=== PATIENT | male | born 1970 | race American Indian/Alaskan Native ===

== ENCOUNTER 2016-12-19 20:41 | Inpatient (IN) | payer MEDICAID, OTHER ==
--- NOTE | 2016-12-19 21:28 | ED PDOC ---
Arrival/HPI - General Chief Complaint: Shortness Of Breath Time Seen by Provider: 12/19/16 21:12 Historian: Patient - History of Present Illness Narrative History of Present Illness (Text): 12/19/16 21:22 Sherif Carlson is a 46 year old male, whose past medical history includes hypertension, who presents to the Emergency Room complaining of progressively worsening swelling to throat/neck since yesterday. Patient reports associated fever, chills, and pain to the area with swallowing and opening his mouth. Patient denies any cough, abdominal pain, nausea, vomiting, diarrhea, headache , dizziness, or any other complaints. Time/Duration: 24 hours (yesterday) Symptom Onset: Gradual Symptom Course: Worsening Activities at Onset: Rest, Light Context: Home Past Medical History - Provider Review Nursing Documentation Reviewed: Yes - Cardiac Hx Hypertension: Yes - Pulmonary Hx Respiratory Disorders: No - Neurological Hx Neurological Disorder: No - HEENT Hx HEENT Disorder: No - Renal Hx Renal Disorder: No - Endocrine/Metabolic Hx Endocrine Disorders: No - Hematological/Oncological Hx Blood Disorders: No - Integumentary Hx Dermatological Disorder: No - Musculoskeletal/Rheumatological Hx Musculoskeletal Disorders: No - Gastrointestinal Hx Gastrointestinal Disorders: No - Genitourinary/Gynecological Hx Genitourinary Disorders: No - Psychiatric Hx Depression: Yes Hx Substance Use: Yes (CANNABIS) Family/Social History - Physician Review Nursing Documentation Reviewed: Yes Family/Social History: No Known Family HX Smoking Status: Heavy Smoker > 10 Cigarettes Daily Hx Alcohol Use: Yes Frequency of alcohol use: Socially Hx Substance Use: Yes (CANNABIS) Allergies/Home Meds Allergies/Adverse Reactions: Allergies No Known Allergies Allergy (Verified 12/19/16 20:54) Home Medications: Home Meds Medication Instructions Recorded Confirmed No Known Home Med 12/19/16 12/19/16 Review of Systems - Physician Review All systems were reviewed & negative as marked: Yes - Review of Systems Constitutional: Fevers, Other (+chills) ENT: Sore Throat Respiratory: Normal. absent: SOB, Cough Cardiovascular: Normal. absent: Chest Pain Gastrointestinal: Normal. absent: Diarrhea, Nausea, Vomiting Neurological: Normal. absent: Headache, Dizziness Hemo/Lymphatic: Adenopathy (+neck swelling) Physical Exam Vital Signs Reviewed: Yes Vital Signs Temp Pulse Resp BP Pulse Ox 12/20/16 02:43 100.7 F H 82 20 157/112 H 06/15/17 01:37 80 18 152/95 H 100 12/19/16 23:41 88 159/91 H 12/19/16 22:53 99.4 F 81 18 171/112 H 100 12/19/16 22:40 108 H 16 145/76 98 12/19/16 22:08 79 219/128 H 12/19/16 21:45 18 97 12/19/16 20:55 99.0 F 79 22 219/128 H 100 Temperature: Afebrile Blood Pressure: Hypertensive Pulse: Regular Respiratory Rate: Normal Appearance: Positive for: Well-Appearing, Non-Toxic, Comfortable Pain Distress: None Mental Status: Positive for: Alert and Oriented X 3 - Systems Exam Head: Present: Atraumatic, Normocephalic Pupils: Present: PERRL Extroacular Muscles: Present: EOMI Conjunctiva: Present: Normal Ears: Present: Normal, NORMAL TM, Normal Canal. No: Erythema, TM Bulging, Fluid , TM Perf Mouth: Present: Moist Mucous Membranes Pharnyx: Present: ERYTHEMA (Erythema to posterior pharynx). No: EXUDATE, TONSILS ENLARGED, Peritonsilar Swelling, Uvular Deviation, Muffled/Hoarse Voice , Strider, Soft Palate/Uvular Edema Nose (External): Present: Atraumatic Nose (Internal): Present: Normal Inspection Neck: Present: Lymphadenopathy (Anterior cervical adenopathy with swelling to subcutaneous neck/submandibular area and severe tenderness to palpation). No: Meningeal Signs, MIDLINE TENDERNESS Respiratory/Chest: Present: Clear to Auscultation, Good Air Exchange. No: Respiratory Distress, Accessory Muscle Use Cardiovascular: Present: Regular Rate and Rhythm, Normal S1, S2. No: Murmurs Abdomen: Present: Normal Bowel Sounds. No: Tenderness, Distention, Peritoneal Signs Upper Extremity: Present: Normal Inspection. No: Cyanosis, Edema Lower Extremity: Present: Normal Inspection. No: Edema Neurological: Present: GCS=15, CN II-XII Intact, Speech Normal Skin: Present: Warm, Dry, Normal Color. No: Rashes Psychiatric: Present: Alert, Oriented x 3, Normal Insight, Normal Concentration Medical Decision Making ED Course and Treatment: 12/19/16 21:22 Impression: 46 year old male c/o throat/neck swelling with fever, chills, and pain with swallowing/opening mouth since yesterday. Plan: -- CT Neck Soft Tissue with contrast -- EKG -- CXR -- Labs, troponin, VBG, blood cultures -- Urinalysis, urine cultures -- IV fluids -- Catapres -- Benadryl -- Pepcid -- Solu-medrol -- Tylenol -- Reassess and disposition Progress Notes: 12/19/16 22:35 Reviewed EKG, NSR at [address] LAD. Non-specific ST/T wave changes. 12/19/16 22:39 Pt tachycardic with VBG lactate: 2.7 and WBC of 18.9. Code Sepsis called. 12/20/16 01:38 Reviewed radiology, CT Neck shows: Mandibular subcutaneous soft tissue swelling with multiple submandibular lymph nodes. Findings suggestive of acute infectious /inflammatory process/cellulitis. No abscess. 12/20/16 01:39 Case discussed with medical assisting instructor, who is aware and agrees with plan. 12/20/16 01:[address] Hoover, who is aware and agrees with plan. Accepts pt in to hospitalist service. Pt will be admitted to [facility] for cellulitis. - Lab Interpretations Microbiology Results: Microbiology Results 12/19/16 22:10 Blood Blood Culture - Final Streptococcus Pyogenes Grp A 12/19/16 22:10 Blood Gram Stain - Final 12/19/16 22:10 Urine Urine Culture - Final No Growth (<1,000 CFU/ML) 12/19/16 22:10 Blood S.aureus & Coag-Neg Staph PNA FISH - Final 12/19/16 22:10 Blood Blood Culture - Preliminary Gram Positive Cocci 12/19/16 22:10 Blood Gram Stain - Preliminary Lab Results: 12/19/16 22:10 12/19/16 22:10 Lab Results 12/19/16 22:10: Sodium 138, Chloride 100, Potassium 3.3 L, Carbon Dioxide 25, Anion Gap 16, BUN 14, Creatinine 1.0, Est GFR ( Amer) > 60, Est GFR (Non- Af Amer) > 60, Random Glucose 106, Calcium 10.0, Phosphorus 3.0, Magnesium 2.3 H , Total Bilirubin 0.6, AST 30, ALT 31, Alkaline Phosphatase 115, Troponin I < 0.01, Total Protein 8.8 H, Albumin 5.0 H, Globulin 3.8, Albumin/Globulin Ratio 1.3 12/19/16 22:10: pO2 26 L, VBG pH 7.32, VBG pCO2 52.0, VBG HCO3 26.8, VBG Total CO2 28.4 H, VBG O2 Sat (Calc) 49.8, VBG Base Excess -0.1 L, VBG Potassium 3.8, Sodium 138.0, Chloride 102.0, Glucose 111 H, Lactate 2.7 H, FiO2 21.0, Venous Blood Potassium 3.8 12/19/16 22:10: Urine Color Yellow, Urine Appearance Clear, Urine pH 6.5, Ur Specific [place] 1.020, Urine Protein Trace H, Urine Glucose (UA) Negative, Urine Ketones Negative, Urine Blood Negative, Urine Nitrate Negative, Urine Bilirubin Negative, Urine Urobilinogen 0.2, Ur Leukocyte Esterase Negative, Urine RBC 0 - 2, Urine WBC 0 - 2, Ur Epithelial Cells 1 - 3, Urine Bacteria Large 12/19/16 22:10: PT 10.1, INR 0.94, APTT 30.6 12/19/16 22:10: WBC 18.9 H, RBC 5.71, Hgb 18.0, Hct 50.2, MCV 87.9, MCH 31.5, MCHC 35.9, RDW 13.5, Plt Count 270, MPV 10.3, Neutrophils % (Manual) 84 H, Band Neutrophils % 3 H, Lymphocytes % (Manual) 8 L, Monocytes % (Manual) 4, Eosinophils % (Manual) 1, Platelet Evaluation Normal I have reviewed the lab results: Yes - RAD Interpretation Narrative RAD Interpretations (Text): CT Neck shows: Chronic appearing inward deformity in the medial left orbital wall. No significant fluid in the sinuses. Chronic appearing deformity of the nasal bones. Subcutaneous soft tissue swelling in the mandibular region supportive of acute infectious/inflammatory process. On coronal image 30 and axial image 50, there is a faint somewhat rounded area of low attenuation that could represent the early stages of abscess formation however there is no well-defined drainable collection at this time. Submandibular lymph nodes are noted. Multiple small lymph nodes are noted throughout the neck. The thyroid appears normal. No masses. The airway is patent. A normal epiglottis is identified. There are mild degenerative changes in the osseous structures. Heterogeneity of the left jugular vein consistent with mixing of blood and contrast. IMPRESSION: Mandibular subcutaneous soft tissue swelling with multiple submandibular lymph nodes. Findings suggestive of acute infectious/inflammatory process/cellulitis. No abscess. Radiology Orders: 12/19/16 21:27 CHEST PORTABLE [RAD] Stat 12/19/16 22:43 NECK SOFT TISSUE W/CONTRAST [CT] Stat Wood Block Artist: ED Physician, Radiologist - EKG Interpretation Interpreted by ED Physician: Yes Type: 12 lead EKG - Medication Orders Current Medication Orders: Acetaminophen (Tylenol 325mg Tab) 650 mg PO Q6H PRN PRN Reason: Fever >100.4 F Last Admin: 12/20/16 10:59 Dose: 650 mg Re-Assess: MAR Pain/Vitals Document 12/20/16 11:59 SD (Rec: 12/20/16 12:56 SD [id number]) Vitals Temperature (97.6 F-99.6 F) 99.0 F Temperature Source Oral Amlodipine Besylate (Norvasc) 10 mg PO DAILY [facility] Last Admin: 12/22/16 10:52 Dose: Not Given Non-Admin Reason: Patient Refused Enoxaparin Sodium (Lovenox) 40 mg SC DAILY [facility] PRN Reason: Protocol Last Admin: 12/22/16 10:52 Dose: Not Given Non-Admin Reason: Patient Refused Famotidine (Pepcid) 20 mg PO BID [facility] Last Admin: 12/22/16 18:41 Dose: Not Given Non-Admin Reason: NPO Hydralazine HCl (Apresoline) 10 mg IVP Q6H PRN PRN Reason: High Blood Pressure Last Admin: 12/22/16 14:51 Dose: 10 mg Hydrochlorothiazide (Hydrodiuril) 25 mg PO DAILY [facility] Last Admin: 12/22/16 10:52 Dose: Not Given Non-Admin Reason: Patient Refused Ampicillin Sodium/Sulbactam (Sodium 3 gm/ Sodium Chloride) 100 mls @ 200 mls/ hr IVPB Q6 [facility] PRN Reason: Protocol Last Admin: 12/22/16 18:30 Dose: Fluconazole 100 mg/ (Miscellaneous) 50 mls @ 100 mls/hr IVPB DAILY [facility] PRN Reason: Protocol Last Admin: 12/22/16 10:03 Dose: 100 mls/hr Vancomycin HCl (Vancomycin 1gm) 1 gm in 250 mls @ 167 mls/hr IVPB Q12H ERNESTO PRN Reason: Protocol Potassium Chloride (Potassium Chloride 20 Meq/100 Ml) 20 meq in 100 mls @ 50 mls/hr IVPB Q2H ERNESTO Stop: 12/22/16 20:14 Last Admin: 12/22/16 18:41 Dose: 50 mls/hr Dextrose/Sodium Chloride (Dextrose 5%/0.45% Ns 1000 Ml) 1,000 mls @ 75 mls/hr IV .[id number] [facility] Last Admin: 12/22/16 16:49 Dose: 75 mls/hr Ketorolac Tromethamine (Toradol) 30 mg IVP Q6 PRN PRN Reason: Pain, moderate (4-7) Last Admin: 12/21/16 23:19 Dose: 30 mg Re-Assess: [facility] Pain Assessment Document 12/22/16 00:19 MB (Rec: 12/22/16 02:47 MB [id number]) Pain Reassessment Is this a pain reassessment? Yes Sleep Is patient sleeping during reassessment? Yes Lisinopril (Zestril) 40 mg PO DAILY [facility] Discontinued Medications Acetaminophen (Tylenol 325mg Tab) 650 mg PO STAT STA Stop: 12/19/16 21:30 Last Admin: 12/19/16 21:55 Dose: 650 mg Re-Assess: [facility] Pain/Vitals Document 12/19/16 22:55 RD (Rec: 12/19/16 23:05 RD [id number]) Pain Reassessment Is This A Pain ReAssessment? No Sleep Is patient sleeping during reassessment? No Presence of Pain Presence of Pain No Amlodipine Besylate (Norvasc) 5 mg PO DAILY [facility] Last Admin: 12/21/16 10:11 Dose: 5 mg Bacitracin (Bacitracin) Confirm Administered Dose 50,000 unit .ROUTE .STK-MED ONE Stop: 12/22/16 19:50 Clonidine HCl (Catapres) 0.2 mg PO STAT STA Stop: 12/19/16 21:33 Last Admin: 12/19/16 22:08 Dose: 0.2 mg Clonidine HCl (Catapres) 0.2 mg PO STAT STA Stop: 12/19/16 23:24 Last Admin: 12/19/16 23:41 Dose: 0.2 mg Diphenhydramine HCl (Benadryl) 25 mg IVP ONCE ONE Stop: 12/19/16 21:30 Last Admin: 12/19/16 21:50 Dose: 25 mg Enalaprilat (Vasotec Iv) 1.25 mg IVP STAT STA Stop: 12/22/16 16:05 Last Admin: 12/22/16 16:41 Dose: 1.25 mg Famotidine (Pepcid) 20 mg IVP STAT STA Stop: 12/19/16 21:30 Last Admin: 12/19/16 23:04 Dose: 20 mg Fentanyl (Fentanyl) Confirm Administered Dose 100 mcg .ROUTE .STK-MED ONE Stop: 12/22/16 19:33 Glycopyrrolate (Robinul) Confirm Administered Dose 0.2 mg .ROUTE .STK-MED ONE Stop: 12/22/16 19:39 Home Med (*Refrigerator Open) Confirm Administered Dose 1 unit XX .STK-MED ONE Stop: 12/20/16 18:13 Hydrochlorothiazide (Microzide) 12.5 mg PO DAILY [facility] Last Admin: 12/20/16 09:42 Dose: 12.5 mg Hydrochlorothiazide (Microzide) 12.5 mg PO ONCE STA Stop: 12/20/16 18:41 Last Admin: 12/20/16 19:01 Dose: 12.5 mg Sodium Chloride (Sodium Chloride 0.9%) 1,000 mls @ 100 mls/hr IV .Q10H [facility] Last Admin: 12/22/16 05:34 Dose: 100 mls/hr Sodium Chloride 2,040 ml/ IV (SUPPLIES) 2,040 mls @ 4,082.34 mls/hr IV ONCE ONE PRN Reason: 60 ML/KG/HR Stop: 12/19/16 23:24 Last Admin: 12/19/16 23:26 Dose: 4,082.34 mls/hr Clindamycin Phosphate 600 mg/ (Sodium Chloride) 54 mls @ 108 mls/hr IVPB STAT STA PRN Reason: Protocol Stop: 12/19/16 23:53 Last Admin: 12/20/16 00:40 Dose: 108 mls/hr Vancomycin HCl (Vancomycin 1gm) 1 gm in 250 mls @ 167 mls/hr IVPB STAT STA PRN Reason: Protocol Stop: 12/20/16 00:53 Last Admin: 12/20/16 02:00 Dose: 167 mls/hr Piperacillin Sod/Tazobactam Sod (Zosyn 4.5 Gm In Ns 100ml) 4.5 gm in 100 mls @ 200 mls/hr IVPB STAT STA PRN Reason: Protocol Stop: 12/19/16 23:53 Last Admin: 12/20/16 01:09 Dose: 200 mls/hr Vancomycin HCl (Vancomycin 1gm) 1 gm in 250 mls @ 167 mls/hr IVPB Q12 ERNESTO Last Admin: 12/21/16 10:12 Dose: 167 mls/hr Vancomycin HCl (Vancomycin 1gm) 1 gm in 250 mls @ 167 mls/hr IVPB Q12H ERNESTO PRN Reason: Protocol Last Admin: 12/22/16 06:22 Dose: 167 mls/hr Iohexol (Omnipaque 350 100 Ml) Confirm Administered Dose 350 mg .ROUTE .STK-MED ONE Stop: 12/19/16 22:56 Iohexol (Omnipaque 350 100 Ml) Confirm Administered Dose 350 mg .ROUTE .STK-MED ONE Stop: 12/22/16 13:15 Ketorolac Tromethamine (Toradol) 30 mg IVP STAT STA Stop: 12/20/16 02:33 Last Admin: 12/20/16 02:43 Dose: 30 mg Lidocaine/Epinephrine (Lidocaine 1%/Epinephrine 1:[id number] 30 Ml) Confirm Administered Dose 30 ml .ROUTE .STK-MED ONE Stop: 12/22/16 19:50 Last Admin: 12/22/16 20:01 Dose: 5 ml Lisinopril (Zestril) 20 mg PO DAILY [facility] Last Admin: 12/20/16 09:42 Dose: 20 mg Lisinopril (Zestril) 30 mg PO DAILY [facility] Last Admin: 12/22/16 10:44 Dose: Not Given Non-Admin Reason: Patient Refused Methylprednisolone (Solu-Medrol) 125 mg IVP ONCE ONE Stop: 12/19/16 21:30 Last Admin: 12/19/16 21:50 Dose: 125 mg Methylprednisolone (Solu-Medrol) 20 mg IV DAILY [facility] Last Admin: 12/21/16 10:10 Dose: 20 mg Midazolam HCl (Versed Inj) Confirm Administered Dose 2 mg .ROUTE .STK-MED ONE Stop: 12/22/16 19:35 Potassium Chloride (K-Dur 20 Meq Er Tab) 40 meq PO STAT STA Stop: 12/20/16 06:41 Last Admin: 12/20/16 07:46 Dose: 40 meq Potassium Chloride (K-Dur 20 Meq Er Tab) 40 meq PO STAT STA Stop: 12/20/16 10:20 Last Admin: 12/20/16 10:41 Dose: 40 meq Potassium Chloride (K-Dur 20 Meq Er Tab) 80 meq PO ONCE ONE Stop: 12/21/16 08:46 Last Admin: 12/21/16 08:40 Dose: 80 meq Propofol (Diprivan) Confirm Administered Dose 200 mg .ROUTE .STK-MED ONE Stop: 12/22/16 19:32 Propofol (Diprivan) Confirm Administered Dose 200 mg .ROUTE .STK-MED ONE Stop: 12/22/16 20:01 Soap/Cleanser (Mastisol Adhesive) Confirm Administered Dose 1.332 ml TOP .STK- MED ONE Stop: 12/22/16 19:49 - Scribe Statement The provider has reviewed the documentation as recorded by the Mayela Craig Provider Attestation: All medical record entries made by the Mayela were at my direction and personally dictated by me. I have reviewed the chart and agree that the record accurately reflects my personal performance of the history, physical exam, medical decision making, and the department course for this patient. I have also personally directed, reviewed, and agree with the discharge instructions and disposition. Disposition/Present on Arrival - Present on Arrival Any Indicators Present on Arrival: No History of DVT/PE: No History of Uncontrolled Diabetes: No Urinary Catheter: No History of Decub. Ulcer: No History Surgical Site Infection Following: None - Disposition Have Diagnosis and Disposition been Completed?: Yes Diagnosis: Cellulitis of neck Disposition: HOSPITALIZED Disposition Time: 02:00 Patient Plan: Admission Patient Problems: Current Active Problems Problem Status Onset Cellulitis of neck Acute Condition: STABLE
[2016-12-19] MEDS ORDERED: DiphenhydrAMINE 50 mg/ml Inj IVP ONE (21:29)
[2016-12-19] MEDS: Sodium Chloride 0.9% 1,000 ML IV SCH (22:07)
[2016-12-19 22:29] LABS: VENOUS BLOOD GAS BASE EXCESS -0.1 mmol/L (0.0-2.0); VENOUS BLOOD PH 7.32 (7.32-7.43)
[2016-12-19 22:42] LABS: ALB/GLOB RATIO 1.3 (1.1-1.8); ALKALINE PHOSPHATASE 115 U/L (38-133); ALT/SGPT 31 U/L (7-56); AST/SGOT 30 U/L (15-59); BILIRUBIN,TOTAL 0.6 mg/dL (0.2-1.3); BLOOD UREA NITROGEN 14 mg/dL (7-21); CARBON DIOXIDE 25 mmol/L (21-33); CHLORIDE 100 mmol/L (98-107); GFR AFRICAN-AMERICAN > 60; GLUCOSE,RANDOM 106 mg/dL (70-110); MAGNESIUM 2.3 mg/dL (1.7-2.2); POTASSIUM 3.3 mmol/L (3.6-5.0); SODIUM 138 mmol/L (132-148); TOTAL PROTEIN 8.8 g/dL (5.8-8.3)
[2016-12-19 22:45] LABS: HEMATOCRIT 50.2 % (42.0-52.0); MEAN CELL VOLUME 87.9 fL (80.0-105.0); MEAN CORPUSCULAR HEMOGLOBIN 31.5 pg (25.0-35.0); MEAN CORPUSCULAR HGB CONC 35.9 g/dl (31.0-37.0); MEAN PLATELET VOLUME 10.3 fl (7.0-11.0); PLATELET COUNT 270 10^3/uL (120.0-450.0); RED CELL DISTRIBUTION WIDTH 13.5 % (11.5-14.5); WHITE BLOOD COUNT 18.9 10^3/ul (4.5-11.0)
[2016-12-19 22:49] LABS: PH,URINE 6.5 (4.7-8.0); URINE BILIRUBIN NEGATIVE (NEGATIVE); URINE BLOOD NEGATIVE (NEGATIVE); URINE GLUCOSE (UA) NEGATIVE (NEGATIVE); URINE KETONE NEGATIVE (NEGATIVE); URINE LEUKOCYTE ESTERASE NEGATIVE Leu/uL (NEGATIVE); URINE PROTEIN TRACE mg/dL (<30 mg/dL); URINE UROBILINOGEN 0.2 E.U./dL (<1 E.U./dL)
[2016-12-19 22:51] LABS: ADD MANUAL DIFF? YES
[2016-12-19 22:53] LABS: URINE APPEARANCE CLEAR (CLEAR); URINE COLOR YELLOW (YELLOW)
[2016-12-19 22:55] LABS: TROPONIN I < 0.01 ng/mL
[2016-12-19] MEDS ORDERED: Iohexol 350 MG/100 ML VIAL ONE (22:55)
[2016-12-19 22:56] LABS: INR 0.94 (0.93-1.08); PARTIAL THROMBOPLASTIN TIME 30.6 Seconds (23.7-30.8)
[2016-12-19] MEDS ORDERED: Vancomycin 1gm in NS 250ml 1 GM/250 ML BAG IVPB STA (23:24)
[2016-12-19] MEDS ORDERED: Piperacill/Tazo 4.5gm in NS 4.5 GM/100 ML BAG IVPB STA (23:24)
[2016-12-19 23:25] LABS: URINE BACTERIA LARGE (NEG); URINE RBC 0 - 2 /hpf (0-2); URINE WBC 0 - 2 /hpf (0-6)
[2016-12-20 00:05] LABS: BAND 3 % (0-2); EOSINOPHIL 1 % (0.0-3.0); NEUTROPHIL 84 % (50.0-70.0); PLATELET ESTIMATE NORMAL (NORMAL)
--- NOTE | 2016-12-20 01:13 | CT ---
EXAM: CT Neck With Intravenous Contrast CLINICAL HISTORY: 46 years old, male; Pain; Throat pain; Additional info: Swelling/pain TECHNIQUE: Axial computed tomography images of the neck with intravenous contrast. This CT exam was performed using one or more of the following dose reduction techniques: automated exposure control, adjustment of the mA and/or kV according to patient size, and/or use of iterative reconstruction technique. Coronal and sagittal reformatted images were created and reviewed. CONTRAST: 98 mL of OMNI 350 administered intravenously. EXAM DATE/TIME: 12/19/2016 10:43 PM COMPARISON: No relevant prior studies available. FINDINGS: Chronic appearing inward deformity in the medial left orbital wall. No significant fluid in the sinuses. Chronic appearing deformity of the nasal bones. Subcutaneous soft tissue swelling in the mandibular region supportive of acute infectious/inflammatory process. On coronal image 30 and axial image 50, there is a faint somewhat rounded area of low attenuation that could represent the early stages of abscess formation however there is no well-defined drainable collection at this time. Submandibular lymph nodes are noted. Multiple small lymph nodes are noted throughout the neck. The thyroid appears normal. No masses. The airway is patent. A normal epiglottis is identified. There are mild degenerative changes in the osseous structures. Heterogeneity of the left jugular vein consistent with mixing of blood and contrast. IMPRESSION: Mandibular subcutaneous soft tissue swelling with multiple submandibular lymph nodes. Findings suggestive of acute infectious/inflammatory process/cellulitis. No abscess.
--- NOTE | 2016-12-20 02:35 | CP.PCM.HP ---
<AinsleyAndrew carrizales - Last Filed: 12/20/16 02:50> History of Present Illness - History of Present Illness History of Present Illness: This patient is a 46yo M w/ a PMHx of HTN only taking clonidine occasionally who is coming to the hospital for a progressive swelling in his neck for the past 3 days. He states he had a sore throat, that then progressed into swelling on the right side of his jaw that then went down to his neck. He states he is having some problems swallowing, but has no trouble breathing. States he had some fevers and chills as well. Denies any HUERTAS, SOB, abdominal pain, N/V/D, dysuria/freq/urg, or lower extremity pain swelling. Pmhx: HTN; non compliant with meds due to insurance issues Allergies: none Fam Hx: Mom, Dad both with HTN and DM, both of pancreatic cancer Surgeries: denies Meds: clonidine, .1mg TID infrequently Social: denies EtOH, admits to marijuana use, denies other illict drugs, smokes 10 cigarettes daily for 15 years. Unprotected sex with women; wishes to be screened for ALL STI/HIV/RPR Present on Admission - Present on Admission Any Indicators Present on Admission: No History of DVT/PE: No History of Uncontrolled Diabetes: No Urinary Catheter: No Decubitus Ulcer Present: No Past Patient History - Past Social History Smoking Status: Heavy Smoker > 10 Cigarettes Daily - CARDIAC Hx Hypertension: Yes - PULMONARY Hx Respiratory Disorders: No - NEUROLOGICAL Hx Neurological Disorder: No - HEENT Hx HEENT Problems: No - RENAL Hx Chronic Kidney Disease: No - ENDOCRINE/METABOLIC Hx Endocrine Disorders: No - HEMATOLOGICAL/ONCOLOGICAL Hx Blood Disorders: No - INTEGUMENTARY Hx Dermatological Problems: No - MUSCULOSKELETAL/RHEUMATOLOGICAL Hx Musculoskeletal Disorders: No - GASTROINTESTINAL Hx Gastrointestinal Disorders: No - GENITOURINARY/GYNECOLOGICAL Hx Genitourinary Disorders: No - PSYCHIATRIC Hx Depression: Yes Hx Substance Use: Yes (CANNABIS) - SURGICAL HISTORY Hx Surgeries: No Meds Allergies/Adverse Reactions: Allergies Allergy/AdvReac Type Severity Reaction Status Date / Time No Known Allergies Allergy Verified 12/19/16 20:54 Physical Exam - Constitutional Appears: Non-toxic, No Acute Distress - Head Exam Head Exam: absent: ATRAUMATIC Additional comments: visibly swollen right side of the face/parotid gland/tender to the touch - Eye Exam Eye Exam: EOMI, Normal appearance - ENT Exam ENT Exam: Mucous Membranes Moist Additional comments: Beckie present on tongue and throat - Neck Exam Neck exam: Positive for: Lymphadenopathy Additional comments: swollen right side of neck, tender to the touch, right parotid gland extremely enlarged and tender - Respiratory Exam Respiratory Exam: Clear to Auscultation Bilateral, NORMAL BREATHING PATTERN. absent: Rales, Rhonchi, Wheezes - Cardiovascular Exam Cardiovascular Exam: REGULAR RHYTHM, +S1, +S2 - GI/Abdominal Exam GI & Abdominal Exam: Normal Bowel Sounds, Soft. absent: Tenderness - Rectal Exam Rectal Exam: Deferred - Extremities Exam Extremities exam: Positive for: full ROM, normal inspection. Negative for: calf tenderness, pedal edema, tenderness - Back Exam Back exam: NORMAL INSPECTION. absent: CVA tenderness (L), CVA tenderness (R) - Neurological Exam Neurological exam: Alert, CN II-XII Intact, Oriented x3, Reflexes Normal - Psychiatric Exam Psychiatric exam: Normal Affect - Skin Skin Exam: Warm Results - Vital Signs Recent Vital Signs: Last Vital Signs Temp 99.4 F 12/19/16 22:53 Pulse 80 12/20/16 01:37 Resp 18 12/20/16 01:37 BP 152/95 H 12/20/16 01:37 Pulse Ox 100 12/20/16 01:37 - Labs Result Diagrams: 12/19/16 22:10 12/19/16 22:10 Assessment & Plan - Assessment and Plan (Free Text) Assessment: 46yo M admitted for Sepsis 2/2 to Cellulitis of the Neck and Hypertensive Emergency Sepsis 2/2 to Cellulits in the neck -Given Vanc, Zosyn, and Clindamycin in the ED -Will give Vanc 1g Q12H -WBC, Tachycardia and sign of infection for sepsis criteria -patient is maintaining airway; CT scan showed no sign of abscess (was given with contrast) but cellulitis/infection Hypertensive Emergency -Lactate of 2.7 -do not lower MAP by more than 25% within the first 24 hours for stroke risk -will start Lisinopril and Hctz in the AM; patient is already at goal for 24 hours in the ED -Hydralazine PRN Q6H for rebound HTN Prophylaxis Pepcid Heart Healthy Diet Lovenox f/u health maintenance labs Case discussed with Dr. Sneha James PGY1 Night Float Decision To Admit - Pt Status Changed To: Hospital Disposition Of: Inpatient Admission - Admit Certification Admit to Inpatient:: After my assessment, the patient will require hospitalization for at least two midnights. This is because of the severity of symptoms shown, intensity of services needed, and/or the medical risk in this patient being treated as an outpatient. - . Bed Request Type: Med/Surg Admitting Physician: Marcy Hoover <Marcy Hoover - Last Filed: 12/22/16 04:05> Results - Vital Signs Recent Vital Signs: Last Vital Signs Temp 98.4 F 12/21/16 16:00 Pulse 61 12/21/16 16:00 Resp 20 12/21/16 16:00 BP 163/107 H 12/21/16 16:00 Pulse Ox 98 12/21/16 16:00 - Labs Result Diagrams: 12/21/16 06:30 12/21/16 06:30 Labs: Laboratory Results - last 24 hr 12/20/16 12/21/16 12/21/16 09:00 06:30 06:30 WBC 17.2 H RBC 4.56 Hgb 14.1 Hct 39.2 L MCV 86.0 MCH 30.9 MCHC 36.0 RDW 13.3 Plt Count 212 MPV 9.5 Gran % 83.9 H Lymph % (Auto) 6.2 L Mccormick % (Auto) 9.3 H Eos % (Auto) 0.5 L Baso % (Auto) 0.1 Gran # 14.41 H Lymph # 1.1 L Mccormick # 1.6 H Eos # 0.1 Baso # 0.02 Sodium 138 Potassium 3.0 L Chloride 105 Carbon Dioxide 24 Anion Gap 12 BUN 8 Creatinine 0.9 Est GFR ( Amer) > 60 Est GFR (Non-Af Amer) > 60 Random Glucose 94 Calcium 8.8 Total Bilirubin 0.6 AST 24 ALT 30 Alkaline Phosphatase 62 Total Protein 6.9 Albumin 3.7 Globulin 3.2 Albumin/Globulin Ratio 1.2 HIV 1&2 Ag/Ab, 4th Gen Nonreactive Attending/Attestation - Attestation I have personally seen and examined this patient.: Yes I have fully participated in the care of the patient.: Yes I have reviewed all pertinent clinical information: Yes Notes (Text): 12/22/16 04:04 Agree with history , physical examination , assessment and plan.
[2016-12-20 02:40] LABS: VENOUS BLOOD GAS BASE EXCESS -1.3 mmol/L (0.0-2.0); VENOUS BLOOD PH 7.42 (7.32-7.43)
[2016-12-20] MEDS ORDERED: Potassium Chloride 20 mEq ER Tab PO STA ×2 (06:40→10:19)
[2016-12-20 08:05] LABS: ADD MANUAL DIFF? NO
[2016-12-20 08:10] LABS: GRAN # 19.98 (1.4-6.5); GRAN % 93.8 % (50.0-68.0); LYMPH # 0.6 (1.2-3.4); LYMPH % 2.6 % (22.0-35.0); MEAN CELL VOLUME 86.7 fL (80.0-105.0); MEAN CORPUSCULAR HEMOGLOBIN 30.9 pg (25.0-35.0); MEAN CORPUSCULAR HGB CONC 35.6 g/dl (31.0-37.0); MEAN PLATELET VOLUME 9.8 fl (7.0-11.0); MONO # 0.8 (0.1-0.6); MONO % 3.6 % (1.0-6.0); PLATELET COUNT 237 10^3/uL (120.0-450.0); RED CELL DISTRIBUTION WIDTH 13.1 % (11.5-14.5); WHITE BLOOD COUNT 21.3 10^3/ul (4.5-11.0)
[2016-12-20 08:21] LABS: ALB/GLOB RATIO 1.3 (1.1-1.8); ALKALINE PHOSPHATASE 75 U/L (38-133); ALT/SGPT 28 U/L (7-56); AST/SGOT 20 U/L (15-59); BILIRUBIN,TOTAL 0.9 mg/dL (0.2-1.3); BLOOD UREA NITROGEN 9 mg/dL (7-21); CALCIUM 8.8 mg/dL (8.4-10.5); CARBON DIOXIDE 22 mmol/L (21-33); CHLORIDE 105 mmol/L (98-107); CHOLESTEROL 161 mg/dL (130-200); GFR AFRICAN-AMERICAN > 60; GLUCOSE,RANDOM 148 mg/dL (70-110); POTASSIUM 3.1 mmol/L (3.6-5.0); SODIUM 138 mmol/L (132-148); TOTAL PROTEIN 7.1 g/dL (5.8-8.3)
[2016-12-20 08:35] LABS: FREE T4 1.17 ng/dL (0.78-2.19)
--- NOTE | 2016-12-20 08:39 | RAD ---
HISTORY: Sepsis Patient COMPARISON: No prior. FINDINGS: LUNGS: The lungs are well inflated and clear. PLEURA: No significant pleural effusion identified, no pneumothorax apparent. CARDIOVASCULAR: Normal. OSSEOUS STRUCTURES: No significant abnormalities. VISUALIZED UPPER ABDOMEN: Normal. OTHER FINDINGS: None. IMPRESSION: No active pulmonary disease.
[2016-12-20 08:49] LABS: THYROID STIMULATING HORMONE 0.43 mIU/mL (0.46-4.68)
[2016-12-20] MEDS: Enoxaparin 40 mg Syringe SC SCH (09:42)
[2016-12-20] MEDS: MethylPREDNISolone 40 mg Vial IV SCH (09:42)
[2016-12-20] MEDS: Sodium Chloride 0.9% 1,000 ML IV SCH ×2 (09:43→21:07)
[2016-12-20] MEDS: Vancomycin 1gm in NS 250ml 1 GM/250 ML BAG IVPB SCH ×2 (09:43→22:37)
[2016-12-20] MEDS ORDERED: Vancomycin 1 g Inj IVPB SCH (10:00)
[2016-12-20] MEDS: Ampicillin/Sulbactam 3 GM in Sodium Chloride 0.9% 100 ML IVPB SCH ×2 (14:34→17:30)
--- NOTE | 2016-12-20 18:46 | CON ---
DATE: 12/20/2016 REASON FOR CONSULTATION: Neck swelling. HISTORY OF PRESENT ILLNESS: The patient is a 46-year-old male with past medical history of hypertens ion, takes clonidine and marijuana smoking, recently smoked as of 2 days ago. The patient came to [facility], said he had a sore throat and neck swelling for 3 days starting on the right side of his jaw then went down in the submental region. The patient said he thinks he had fevers at home, but de nies any headache, having shortness of breath, abdominal pain, nausea, vomiting, diarrhea, dysuria, o r lower extremity swelling, change in vision. ALLERGIES: No known drug allergies. SOCIAL HISTORY: Smokes marijuana. Denies other illicit drug use. Denies alcohol use. Notes that mary kong infrequently takes his hypertension medication. The patient said he smokes 10 cigarettes daily for [address] scan performed when admitted. The CT scan showed that there was only a mandibular subcutaneous so ft tissue swelling with multiple submandibular lymph nodes. Findings suggestive of acute infection o r inflammatory process/cellulitis but no abscess was found, read by Dr. Filomena Pederson on 12/20/2016 . The patient was seen and examined. VITAL SIGNS: Afebrile, blood pressure 159/102, pulse 79, respirations 18, sat 99% on room air. LABORATORY DATA: White count was noted to be at 21.3 increased from 18.9. Lactate is down from 2.7 to 1.4. The patient's BUN and creatinine are stable. PHYSICAL EXAMINATION: GENERAL: Alert and oriented x 3 in no acute distress. EYES: ____ no sclera icterus. MOUTH: Moist mucous membranes. Poor dentition. Symmetric palate elevation. No floor of mouth swel ling. Uvula is midline. Tongue is midline. NECK: Minimal tenderness to palpation in the submental area, induration in the submental region. No fluctuance. No lymphadenopathy appreciated on physical exam. The patient has full range of motion of the neck to the left and to the right without pain. No pain upon swallowing. No crepitus appreci ated of the neck. RESPIRATION: Aerating well, no stridor, nonlabored breathing. VOICE: Normal, strong. ASSESSMENT AND PLAN: This is a 46-year-old male admitted for sepsis secondary [facility] The patient examined and noted to have submental swelling and induration with no drainable fluid collection. The patient is currently on vancomycin as an inpatient; however, noted the patient has not been seen by infectious disease at this time. Recommend Unasyn until the patient was seen by infectious diseanu waite. Recommend monitoring white count, vital signs and p.o. intake. The patient is able to tolerate diet and liquids at this time. No ENT surgical intervention. The patient discussed with nursing, ronal sed with the primary team. Theodore Haile DO cc: [id number] TT: 12/20/2016 18:45:27 Confirmation # [id number] Dictation # [id number]
--- NOTE | 2016-12-20 23:12 | CARD ---
APPROVED REPORT EKG Measurement Heart [id number] <Conclusion> Normal sinus rhythm Left axis deviation Abnormal ECG
[2016-12-21] MEDS: Ampicillin/Sulbactam 3 GM in Sodium Chloride 0.9% 100 ML IVPB SCH ×5 (00:19→23:19)
[2016-12-21 07:12] LABS: ADD MANUAL DIFF? NO
[2016-12-21 07:18] LABS: BASO # 0.02 K/mm3 (0.0-2.0); BASO % 0.1 % (0.0-3.0); EOS # 0.1 (0.0-0.7); EOS % 0.5 % (1.5-5.0); GRAN # 14.41 (1.4-6.5); GRAN % 83.9 % (50.0-68.0); HEMATOCRIT 39.2 % (42.0-52.0); LYMPH # 1.1 (1.2-3.4); LYMPH % 6.2 % (22.0-35.0); MEAN CORPUSCULAR HEMOGLOBIN 30.9 pg (25.0-35.0); MEAN PLATELET VOLUME 9.5 fl (7.0-11.0); MONO # 1.6 (0.1-0.6); MONO % 9.3 % (1.0-6.0); PLATELET COUNT 212 10^3/uL (120.0-450.0); RED CELL DISTRIBUTION WIDTH 13.3 % (11.5-14.5); WHITE BLOOD COUNT 17.2 10^3/ul (4.5-11.0)
[2016-12-21 07:48] LABS: ALB/GLOB RATIO 1.2 (1.1-1.8); ALKALINE PHOSPHATASE 62 U/L (38-133); ALT/SGPT 30 U/L (7-56); AST/SGOT 24 U/L (15-59); BILIRUBIN,TOTAL 0.6 mg/dL (0.2-1.3); BLOOD UREA NITROGEN 8 mg/dL (7-21); CALCIUM 8.8 mg/dL (8.4-10.5); CARBON DIOXIDE 24 mmol/L (21-33); CHLORIDE 105 mmol/L (98-107); GFR AFRICAN-AMERICAN > 60; GLUCOSE,RANDOM 94 mg/dL (70-110); SODIUM 138 mmol/L (132-148); TOTAL PROTEIN 6.9 g/dL (5.8-8.3)
[2016-12-21] MEDS ORDERED: Potassium Chloride 10 mEq ER Tab PO ONE (08:22)
[2016-12-21] MEDS ORDERED: Potassium Chloride 20 mEq ER Tab PO ONE (08:45)
--- NOTE | 2016-12-21 08:48 | CP.PCM.PN ---
<Titi Pineda - Last Filed: 12/21/16 15:57> Subjective - Date & Time of Evaluation Date of Evaluation: 12/21/16 Time of Evaluation: 08:42 - Subjective Subjective: Patient seen at bedside. No acute events overnight. He continues to complain of pain and discomfort under his tongue as well as pain with swallowing. Patient is tolerating a regular diet without reports of dysphagia. He is afebrile and denies fever, chills, n/v/d, chest pain or SOB. Objective - Vital Signs/Intake and Output Vital Signs (last 24 hours): Temp Pulse Resp BP Pulse Ox 98.5 F 107 H 22 100/70 99 12/20/16 16:00 12/20/16 16:00 12/20/16 16:00 12/20/16 16:00 12/20/16 16:00 Intake and Output: 12/21/16 12/21/16 06:59 18:59 Intake Total 2069 Balance 207 - Medications Medications: Current Medications Acetaminophen (Tylenol 325mg Tab) 650 mg PO Q6H PRN PRN Reason: Fever >100.4 F Last Admin: 12/20/16 10:59 Dose: 650 mg Amlodipine Besylate (Norvasc) 5 mg PO DAILY [facility] Enoxaparin Sodium (Lovenox) 40 mg SC DAILY ERNEST[facility] PRN Reason: Protocol Last Admin: 12/20/16 09:42 Dose: 40 mg Famotidine (Pepcid) 20 mg PO BID [facility] Last Admin: 12/20/16 17:30 Dose: 20 mg Hydralazine HCl (Apresoline) 10 mg IVP Q6H PRN PRN Reason: High Blood Pressure Last Admin: 12/20/16 03:59 Dose: 10 mg Hydrochlorothiazide (Hydrodiuril) 25 mg PO DAILY [facility] Sodium Chloride (Sodium Chloride 0.9%) 1,000 mls @ 100 mls/hr IV .Q10H [facility] Last Admin: 12/20/16 21:07 Dose: 100 mls/hr Vancomycin HCl (Vancomycin 1gm) 1 gm in 250 mls @ 167 mls/hr IVPB Q12 [facility] Last Admin: 12/20/16 22:37 Dose: 167 mls/hr Ampicillin Sodium/Sulbactam (Sodium 3 gm/ Sodium Chloride) 100 mls @ 200 mls/ hr IVPB Q6 [facility]NE[facility] PRN Reason: Protocol Last Admin: 12/21/16 05:00 Dose: 200 mls/hr Ibuprofen (Motrin Tab) 600 mg PO Q6H PRN PRN Reason: Pain, Mild (1-3) Ketorolac Tromethamine (Toradol) 30 mg IVP Q6 PRN PRN Reason: Pain, moderate (4-7) Last Admin: 12/21/16 04:53 Dose: 30 mg Lisinopril (Zestril) 30 mg PO DAILY [facility] Methylprednisolone (Solu-Medrol) 20 mg IV DAILY [facility] Last Admin: 12/20/16 09:42 Dose: 20 mg Potassium Chloride (K-Dur 20 Meq Er Tab) 80 meq PO ONCE ONE Stop: 12/21/16 08:46 - Labs Labs: 12/21/16 06:30 12/21/16 06:30 PT 10.1 Seconds (9.9-11.8) 12/19/16 22:10 INR 0.94 (0.93-1.08) 12/19/16 22:10 APTT 30.6 Seconds (23.7-30.8) 12/19/16 22:10 - Constitutional Appears: Non-toxic, No Acute Distress - Head Exam Head Exam: ATRAUMATIC, NORMOCEPHALIC - Eye Exam Eye Exam: EOMI, PERRL - ENT Exam ENT Exam: Mucous Membranes Dry - Neck Exam Additional comments: infra-mandibular soft tissue swelling without surrounding erythema or skin lesion - Respiratory Exam Respiratory Exam: Clear to Ausculation Bilateral. absent: Rales, Rhonchi, Wheezes - Cardiovascular Exam Cardiovascular Exam: REGULAR RHYTHM, +S1, +S2 - GI/Abdominal Exam GI & Abdominal Exam: Soft, Normal Bowel Sounds. absent: Tenderness - Extremities Exam Extremities Exam: Full ROM. absent: Calf Tenderness, Pedal Edema - Neurological Exam Neurological Exam: Alert, Awake, Oriented x3 - Psychiatric Exam Psychiatric exam: Normal Affect, Normal Mood - Skin Skin Exam: Dry, Warm Assessment and Plan - Assessment and Plan (Free Text) Assessment: 46yo M with hx HTN presenting with infra-mandibular soft tissue infection. He is afebrile. Upper airway is patent. There is no dysphagia. cellulitis -continue with vancomycin and unasyn per ENT -ENT following - rec abx. no surgical intervention -patient is maintaining airway; CT scan showed no sign of abscess (was given with contrast) but cellulitis/infection -ID following gram positive cocci bacteremia - repeat cultures - ID following - continue abx as above hx HTN - continue home medications Prophylaxis Pepcid Heart Healthy Diet Lovenox f/u health maintenance labs Patient seen, evaluated and examined with attending. <Gautam Nino MD - Last Filed: 12/21/16 17:29> Objective - Vital Signs/Intake and Output Vital Signs (last 24 hours): Temp Pulse Resp BP Pulse Ox 98.4 F 61 20 163/107 H 98 12/21/16 16:00 12/21/16 16:00 12/21/16 16:00 12/21/16 16:00 12/21/16 16:00 Intake and Output: 12/21/16 12/21/16 06:59 18:59 Intake Total 2069 760 Balance 2069 760 - Medications Medications: Current Medications Acetaminophen (Tylenol 325mg Tab) 650 mg PO Q6H PRN PRN Reason: Fever >100.4 F Last Admin: 12/20/16 10:59 Dose: 650 mg Amlodipine Besylate (Norvasc) 5 mg PO DAILY [facility] Last Admin: 12/21/16 10:11 Dose: 5 mg Enoxaparin Sodium (Lovenox) 40 mg SC DAILY ERNESTO PRN Reason: Protocol Last Admin: 12/21/16 10:12 Dose: 40 mg Famotidine (Pepcid) 20 mg PO BID [facility] Last Admin: 12/21/16 10:12 Dose: 20 mg Hydralazine HCl (Apresoline) 10 mg IVP Q6H PRN PRN Reason: High Blood Pressure Last Admin: 12/20/16 03:59 Dose: 10 mg Hydrochlorothiazide (Hydrodiuril) 25 mg PO DAILY [facility] Last Admin: 12/21/16 10:12 Dose: 25 mg Sodium Chloride (Sodium Chloride 0.9%) 1,000 mls @ 100 mls/hr IV .Q10H [facility] Last Admin: 12/21/16 14:18 Dose: 100 mls/hr Ampicillin Sodium/Sulbactam (Sodium 3 gm/ Sodium Chloride) 100 mls @ 200 mls/ hr IVPB Q6 ERNESTO PRN Reason: Protocol Last Admin: 12/21/16 12:55 Dose: 200 mls/hr Ibuprofen (Motrin Tab) 600 mg PO Q6H PRN PRN Reason: Pain, Mild (1-3) Ketorolac Tromethamine (Toradol) 30 mg IVP Q6 PRN PRN Reason: Pain, moderate (4-7) Last Admin: 12/21/16 13:12 Dose: 30 mg Lisinopril (Zestril) 30 mg PO DAILY [facility] Last Admin: 12/21/16 10:11 Dose: 30 mg Methylprednisolone (Solu-Medrol) 20 mg IV DAILY [facility] Last Admin: 12/21/16 10:10 Dose: 20 mg - Labs Labs: 12/21/16 06:30 12/21/16 06:30 PT 10.1 Seconds (9.9-11.8) 12/19/16 22:10 INR 0.94 (0.93-1.08) 12/19/16 22:10 APTT 30.6 Seconds (23.7-30.8) 12/19/16 22:10 Attending/Attestation - Attestation I have personally seen and examined this patient.: Yes I have fully participated in the care of the patient.: Yes I have reviewed all pertinent clinical information, including history, physical exam and plan: Yes Notes (Text): 12/21/16 17:26 Patient was seen and examined with medical representative .Agreed with resident assessment and plan. 46 M with Submandibular abscess and streptococus Pyogene bacteremia, on IV unasyn, was evaluated by ENT, no plan for drainage as per ENT.We will continue IV antibiotics, will follow up cultures,patient is afebrile today, WBC is coming down, tolerating food.ID is following. Management plan was discussed in detail with patient Education was provided.
[2016-12-21] MEDS: MethylPREDNISolone 40 mg Vial IV SCH (10:10)
[2016-12-21] MEDS: Vancomycin 1gm in NS 250ml 1 GM/250 ML BAG IVPB SCH ×2 (10:12→20:17)
[2016-12-21] MEDS: Enoxaparin 40 mg Syringe SC SCH (10:12)
[2016-12-21] MEDS: Sodium Chloride 0.9% 1,000 ML IV SCH (14:18)
--- NOTE | 2016-12-21 18:42 | CP.PCM.CON ---
History of Present Illness - History of Present Illness History of Present Illness: 46 year old male with PMH of HTN came in to [facility] complaining of worsening swelling of his throat as well as difficulty of swallowing which started 3 days prior to admission. He denies animal contacts or insect bites and no travel outside of [place] in the past 3 months. He denies sore throat , no rhinorrhea, no chest pain, no SOB, no cough, no abdominal pain, no fever or chills, no diarrhea, no dysuria. In the ED, CT neck showed submandibular swelling. Infectious Diseases consult is requested to further evaluate and manage. Review of Systems - Review of Systems All systems: reviewed and no additional remarkable complaints except (as per HPI ) Past Patient History - Past Social History Smoking Status: Heavy Smoker > 10 Cigarettes Daily - CARDIAC Hx Hypertension: Yes - PULMONARY Hx Respiratory Disorders: No - NEUROLOGICAL Hx Neurological Disorder: No - HEENT Hx HEENT Problems: No - RENAL Hx Chronic Kidney Disease: No - ENDOCRINE/METABOLIC Hx Endocrine Disorders: No - HEMATOLOGICAL/ONCOLOGICAL Hx Blood Disorders: No - INTEGUMENTARY Hx Dermatological Problems: No - MUSCULOSKELETAL/RHEUMATOLOGICAL Hx Musculoskeletal Disorders: No - GASTROINTESTINAL Hx Gastrointestinal Disorders: No - GENITOURINARY/GYNECOLOGICAL Hx Genitourinary Disorders: No - PSYCHIATRIC Hx Depression: Yes Hx Substance Use: Yes (CANNABIS) - SURGICAL HISTORY Hx Surgeries: No Meds Allergies/Adverse Reactions: Allergies Allergy/AdvReac Type Severity Reaction Status Date / Time No Known Allergies Allergy Verified 12/19/16 20:54 - Medications Medications: Current Medications Acetaminophen (Tylenol 325mg Tab) 650 mg PO Q6H PRN PRN Reason: Fever >100.4 F Last Admin: 12/20/16 10:59 Dose: 650 mg Amlodipine Besylate (Norvasc) 5 mg PO DAILY [facility] Enoxaparin Sodium (Lovenox) 40 mg SC DAILY ER[facility]STO PRN Reason: Protocol Last Admin: 12/20/16 09:42 Dose: 40 mg Famotidine (Pepcid) 20 mg PO BID [facility] Last Admin: 12/20/16 17:30 Dose: 20 mg Hydralazine HCl (Apresoline) 10 mg IVP Q6H PRN PRN Reason: High Blood Pressure Last Admin: 12/20/16 03:59 Dose: 10 mg Hydrochlorothiazide (Hydrodiuril) 25 mg PO DAILY [facility] Sodium Chloride (Sodium Chloride 0.9%) 1,000 mls @ 100 mls/hr IV .Q10H [facility] Last Admin: 12/20/16 21:07 Dose: 100 mls/hr Vancomycin HCl (Vancomycin 1gm) 1 gm in 250 mls @ 167 mls/hr IVPB Q12 [facility] Last Admin: 12/20/16 22:37 Dose: 167 mls/hr Ampicillin Sodium/Sulbactam (Sodium 3 gm/ Sodium Chloride) 100 mls @ 200 mls/ hr IVPB Q6 [facility]STO PRN Reason: Protocol Last Admin: 12/21/16 05:00 Dose: 200 mls/hr Ibuprofen (Motrin Tab) 600 mg PO Q6H PRN PRN Reason: Pain, Mild (1-3) Ketorolac Tromethamine (Toradol) 30 mg IVP Q6 PRN PRN Reason: Pain, moderate (4-7) Last Admin: 12/21/16 04:53 Dose: 30 mg Lisinopril (Zestril) 30 mg PO DAILY [facility] Methylprednisolone (Solu-Medrol) 20 mg IV DAILY [facility] Last Admin: 12/20/16 09:42 Dose: 20 mg Physical Exam - Constitutional Appears: Non-toxic, No Acute Distress - Head Exam Head Exam: NORMAL INSPECTION - ENT Exam ENT Exam: Mucous Membranes Moist Additional comments: submandibular swelling noted; oral thrush noted - Neck Exam Neck exam: Negative for: Lymphadenopathy, Meningismus - Respiratory Exam Respiratory Exam: Decreased Breath Sounds - Cardiovascular Exam Cardiovascular Exam: +S1, +S2 - GI/Abdominal Exam GI & Abdominal Exam: Soft. absent: Tenderness Results - Vital Signs Recent Vital Signs: Last Vital Signs Temp 98.5 F 12/20/16 16:00 Pulse 107 H 12/20/16 16:00 Resp 22 12/20/16 16:00 BP 100/70 12/20/16 16:00 Pulse Ox 99 12/20/16 16:00 - Labs Result Diagrams: 12/21/16 06:30 12/21/16 06:30 Labs: Laboratory Results - last 24 hr 12/20/16 12/20/16 12/20/16 07:30 07:30 07:30 WBC 21.3 H RBC 4.73 Hgb 14.6 Hct 41.0 L MCV 86.7 MCH 30.9 MCHC 35.6 RDW 13.1 Plt Count 237 MPV 9.8 Gran % 93.8 H Lymph % (Auto) 2.6 L Carbon % (Auto) 3.6 Eos % (Auto) 0.0 L Baso % (Auto) 0.0 Gran # 19.98 H Lymph # 0.6 L Carbon # 0.8 H Eos # 0.0 Baso # 0.00 Sodium 138 Potassium 3.1 L Chloride 105 Carbon Dioxide 22 Anion Gap 14 BUN 9 Creatinine 0.9 Est GFR ( Amer) > 60 Est GFR (Non-Af Amer) > 60 Random Glucose 148 H Hemoglobin A1c Calcium 8.8 Total Bilirubin 0.9 AST 20 ALT 28 Alkaline Phosphatase 75 Total Protein 7.1 Albumin 4.0 Globulin 3.1 Albumin/Globulin Ratio 1.3 Triglycerides 70 Cholesterol 161 LDL Cholesterol Direct 92 HDL Cholesterol 66 H Free T4 TSH 3rd Generation RPR Hepatitis A IgM Ab Negative Hep Bs Antigen Negative Hep B Core IgM Ab Negative Hepatitis C Antibody Negative 12/20/16 12/20/16 12/20/16 07:30 07:30 09:00 WBC RBC Hgb Hct MCV MCH MCHC RDW Plt Count MPV Gran % Lymph % (Auto) Carbon % (Auto) Eos % (Auto) Baso % (Auto) Gran # Lymph # Carbon # Eos # Baso # Sodium Potassium Chloride Carbon Dioxide Anion Gap BUN Creatinine Est GFR ( Amer) Est GFR (Non-Af Amer) Random Glucose Hemoglobin A1c 5.3 Calcium Total Bilirubin AST ALT Alkaline Phosphatase Total Protein Albumin Globulin Albumin/Globulin Ratio Triglycerides Cholesterol LDL Cholesterol Direct HDL Cholesterol Free T4 1.17 TSH 3rd Generation 0.43 L RPR Nonreactive Hepatitis A IgM Ab Hep Bs Antigen Hep B Core IgM Ab Hepatitis C Antibody Assessment & Plan - Assessment and Plan (Free Text) Plan: Assessment Sepsis due to submandibular cellulitis Oral thrush probably candidiasis HTN Plan continue Vancomycin and Unasyn and add Fluconazole; will order CT chest will check HIV test and RPR will monitor clinically
--- NOTE | 2016-12-21 19:06 | CARD ---
APPROVED REPORT EXAM: Two-dimensional and M-mode echocardiogram with Doppler and color Doppler. INDICATION ENDOCARDITIS 2D DIMENSIONS Left Atrium (2D)4.7 (1.6-4.0cm)IVSd1.2 (0.7-1.1cm) LVDd4.5 (3.9-5.9cm)PWd1.2 (0.7-1.1cm) LVDs3.1 (2.5-4.0cm)FS (%) 30.0 % LVEF (%)57.5 (>50%) M-Mode DIMENSIONS Aortic Root3.30 (2.2-3.7cm)Aortic Cusp Exc.1.80 (1.5-2.0cm) Aortic Valve AoV Peak Zivlfgbd399.0cm/Ritika Peak GR.7mmHg Mitral Valve MV E Jydzvzkj50.7cm/sMV A Kkiwwfvm89.5cm/sE/A ratio0.8 TDI Lateral E' Peak V8.09cm/sMedial E' Peak V7.31cm/sE/Lateral E'8.0 E/Medial E'8.9 Pulmonary Valve PV Peak Lnfkftwf26.1cm/sPV Peak Grad.2mmHg Tricuspid Valve TR Peak Omuudlvn487bt/sRAP HBTZCHKD25hpCfDS Peak Gr.11mmHg [id number] LEFT VENTRICLE The left ventricle is normal size. There is borderline concentric left ventricular hypertrophy. The left ventricular function is normal. The left ventricular ejection fraction is within the normal range. There is normal LV segmental wall motion. Transmitral Doppler flow pattern is Grade I-abnormal relaxation pattern. RIGHT VENTRICLE The right ventricle is normal size. There is normal right ventricular wall thickness. The right ventricular systolic function is normal. ATRIA The left atrium is borderline dilated. The right atrium size is normal. AORTIC VALVE The aortic valve is mildly thickened. No aortic regurgitation is present. MITRAL VALVE The mitral valve is mildly thickened. GREAT VESSELS The aortic root is normal in size. <Conclusion> The left ventricle is normal size. There is borderline concentric left ventricular hypertrophy. The left ventricular function is normal. The left ventricular ejection fraction is within the normal range. There is normal LV segmental wall motion. Transmitral Doppler flow pattern is Grade I-abnormal relaxation pattern. No vegitation seen
[2016-12-22] MEDS: Ampicillin/Sulbactam 3 GM in Sodium Chloride 0.9% 100 ML IVPB SCH ×5 (05:21→23:22)
[2016-12-22] MEDS: Sodium Chloride 0.9% 1,000 ML IV SCH (05:34)
[2016-12-22] MEDS: Vancomycin 1gm in NS 250ml 1 GM/250 ML BAG IVPB SCH ×2 (06:22→22:01)
[2016-12-22 08:02] LABS: ADD MANUAL DIFF? NO
[2016-12-22 08:04] LABS: BASO # 0.02 K/mm3 (0.0-2.0); BASO % 0.1 % (0.0-3.0); EOS # 0.2 (0.0-0.7); EOS % 1.5 % (1.5-5.0); GRAN # 10.49 (1.4-6.5); GRAN % 76.2 % (50.0-68.0); LYMPH # 1.6 (1.2-3.4); LYMPH % 11.6 % (22.0-35.0); MEAN CELL VOLUME 85.7 fL (80.0-105.0); MEAN CORPUSCULAR HEMOGLOBIN 31.1 pg (25.0-35.0); MEAN CORPUSCULAR HGB CONC 36.3 g/dl (31.0-37.0); MEAN PLATELET VOLUME 9.6 fl (7.0-11.0); MONO # 1.5 (0.1-0.6); MONO % 10.6 % (1.0-6.0); PLATELET COUNT 234 10^3/uL (120.0-450.0); WHITE BLOOD COUNT 13.8 10^3/ul (4.5-11.0)
[2016-12-22 08:21] LABS: ALB/GLOB RATIO 1.2 (1.1-1.8); ALKALINE PHOSPHATASE 71 U/L (38-133); ALT/SGPT 37 U/L (7-56); AST/SGOT 36 U/L (15-59); BILIRUBIN,TOTAL 0.4 mg/dL (0.2-1.3); BLOOD UREA NITROGEN 8 mg/dL (7-21); CALCIUM 9.2 mg/dL (8.4-10.5); CARBON DIOXIDE 22 mmol/L (21-33); CHLORIDE 103 mmol/L (98-107); GFR AFRICAN-AMERICAN > 60; GLUCOSE,RANDOM 90 mg/dL (70-110); POTASSIUM 3.1 mmol/L (3.6-5.0); SODIUM 136 mmol/L (132-148); TOTAL PROTEIN 7.4 g/dL (5.8-8.3)
[2016-12-22] MEDS ORDERED: Sodium Chloride 0.45% 1,000 ML IV SCH (09:45)
[2016-12-22] MEDS: Fluconazole IV 200mg/100 ml NS 100 MG in Premixed IV 1 EA IVPB SCH (10:03)
[2016-12-22] MEDS: Enoxaparin 40 mg Syringe SC SCH (10:52)
--- NOTE | 2016-12-22 11:51 | CP.PCM.PN ---
<Titi Pineda - Last Filed: 12/22/16 11:48> Subjective - Date & Time of Evaluation Date of Evaluation: 12/22/16 Time of Evaluation: 11:48 - Subjective Subjective: Patient seen at bedside. He continues to experience neck and jaw pain. States he is having increased difficulty with swallowing solids. He denies chocking or aspirating. He is afebrile but with generalized malaise. Objective - Vital Signs/Intake and Output Vital Signs (last 24 hours): Temp Pulse Resp BP Pulse Ox 98.4 F 61 20 178/116 H 98 12/21/16 16:00 12/22/16 05:24 12/21/16 16:00 12/22/16 10:44 12/21/16 16:00 Intake and Output: 12/22/16 12/22/16 06:59 18:59 Intake Total 540 Balance 540 - Medications Medications: Current Medications Acetaminophen (Tylenol 325mg Tab) 650 mg PO Q6H PRN PRN Reason: Fever >100.4 F Last Admin: 12/20/16 10:59 Dose: 650 mg Amlodipine Besylate (Norvasc) 10 mg PO DAILY [facility] Last Admin: 12/22/16 10:52 Dose: Not Given Enoxaparin Sodium (Lovenox) 40 mg SC DAILY [facility] PRN Reason: Protocol Last Admin: 12/22/16 10:52 Dose: Not Given Famotidine (Pepcid) 20 mg PO BID [facility] Last Admin: 12/22/16 10:52 Dose: Not Given Hydralazine HCl (Apresoline) 10 mg IVP Q6H PRN PRN Reason: High Blood Pressure Last Admin: 12/22/16 05:24 Dose: 10 mg Hydrochlorothiazide (Hydrodiuril) 25 mg PO DAILY [facility] Last Admin: 12/22/16 10:52 Dose: Not Given Ampicillin Sodium/Sulbactam (Sodium 3 gm/ Sodium Chloride) 100 mls @ 200 mls/ hr IVPB Q6 [facility] PRN Reason: Protocol Last Admin: 12/22/16 05:21 Dose: 200 mls/hr Fluconazole 100 mg/ (Miscellaneous) 50 mls @ 100 mls/hr IVPB DAILY [facility] PRN Reason: Protocol Last Admin: 12/22/16 10:03 Dose: 100 mls/hr Vancomycin HCl (Vancomycin 1gm) 1 gm in 250 mls @ 167 mls/hr IVPB Q12H [facility] PRN Reason: Protocol Sodium Chloride (Sodium Chloride 0.45%) 1,000 mls @ 60 mls/hr IV .[id number] [facility] Ibuprofen (Motrin Tab) 600 mg PO Q6H PRN PRN Reason: Pain, Mild (1-3) Ketorolac Tromethamine (Toradol) 30 mg IVP Q6 PRN PRN Reason: Pain, moderate (4-7) Last Admin: 12/21/16 23:19 Dose: 30 mg Lisinopril (Zestril) 30 mg PO DAILY [facility] Last Admin: 12/22/16 10:44 Dose: Not Given - Labs Labs: 12/22/16 08:00 12/22/16 08:00 PT 10.1 Seconds (9.9-11.8) 12/19/16 22:10 INR 0.94 (0.93-1.08) 12/19/16 22:10 APTT 30.6 Seconds (23.7-30.8) 12/19/16 22:10 - Constitutional Appears: Non-toxic, No Acute Distress - Head Exam Head Exam: ATRAUMATIC, NORMOCEPHALIC - Eye Exam Eye Exam: EOMI, PERRL - ENT Exam ENT Exam: Mucous Membranes Dry Additional comments: submandibular swelling, tenderness and induration. poor dentition noted. cervical lymphadenopathy. - Neck Exam Neck Exam: Lymphadenopathy. absent: Full ROM - Respiratory Exam Respiratory Exam: Clear to Ausculation Bilateral. absent: Rales, Rhonchi, Wheezes, Respiratory Distress - Cardiovascular Exam Cardiovascular Exam: REGULAR RHYTHM, +S1, +S2 - GI/Abdominal Exam GI & Abdominal Exam: Soft, Normal Bowel Sounds - Extremities Exam Extremities Exam: absent: Calf Tenderness, Pedal Edema - Neurological Exam Neurological Exam: Alert, Awake, Oriented x3 - Psychiatric Exam Psychiatric exam: Normal Affect, Normal Mood - Skin Skin Exam: Dry, Normal Color Assessment and Plan - Assessment and Plan (Free Text) Assessment: 46yo M with hx HTN presenting with infra-mandibular soft tissue infection. He is afebrile. Upper airway is patent. cellulitis - case d/w ENT who recommend repeat CT neck with contrast to r/o abscess formation -continue with vancomycin and unasyn per ENT -ENT following - rec abx. no surgical intervention -patient is maintaining airway; CT scan showed no sign of abscess (was given with contrast) but cellulitis/infection -ID following gram positive cocci bacteremia - repeat cultures - ID following - continue abx as above hx HTN - continue home medications Prophylaxis Pepcid Heart Healthy Diet Lovenox f/u health maintenance labs Patient seen, evaluated and examined with attending. <Gautam Nino MD - Last Filed: 12/22/16 15:44> Objective - Vital Signs/Intake and Output Vital Signs (last 24 hours): Temp Pulse Resp BP Pulse Ox 98.4 F 61 20 170/112 H 98 12/21/16 16:00 12/22/16 05:24 12/21/16 16:00 12/22/16 14:51 12/21/16 16:00 Intake and Output: 12/22/16 12/22/16 06:59 18:59 Intake Total 540 Balance 540 - Medications Medications: Current Medications Acetaminophen (Tylenol 325mg Tab) 650 mg PO Q6H PRN PRN Reason: Fever >100.4 F Last Admin: 12/20/16 10:59 Dose: 650 mg Amlodipine Besylate (Norvasc) 10 mg PO DAILY [facility] Last Admin: 12/22/16 10:52 Dose: Not Given Enoxaparin Sodium (Lovenox) 40 mg SC DAILY [facility] PRN Reason: Protocol Last Admin: 12/22/16 10:52 Dose: Not Given Famotidine (Pepcid) 20 mg PO BID [facility] Last Admin: 12/22/16 10:52 Dose: Not Given Hydralazine HCl (Apresoline) 10 mg IVP Q6H PRN PRN Reason: High Blood Pressure Last Admin: 12/22/16 14:51 Dose: 10 mg Hydrochlorothiazide (Hydrodiuril) 25 mg PO DAILY [facility] Last Admin: 12/22/16 10:52 Dose: Not Given Ampicillin Sodium/Sulbactam (Sodium 3 gm/ Sodium Chloride) 100 mls @ 200 mls/ hr IVPB Q6 [facility] PRN Reason: Protocol Last Admin: 12/22/16 13:05 Dose: 200 mls/hr Fluconazole 100 mg/ (Miscellaneous) 50 mls @ 100 mls/hr IVPB DAILY [facility] PRN Reason: Protocol Last Admin: 12/22/16 10:03 Dose: 100 mls/hr Vancomycin HCl (Vancomycin 1gm) 1 gm in 250 mls @ 167 mls/hr IVPB Q12H [facility] PRN Reason: Protocol Sodium Chloride (Sodium Chloride 0.45%) 1,000 mls @ 60 mls/hr IV .[id number] [facility] Ibuprofen (Motrin Tab) 600 mg PO Q6H PRN PRN Reason: Pain, Mild (1-3) Ketorolac Tromethamine (Toradol) 30 mg IVP Q6 PRN PRN Reason: Pain, moderate (4-7) Last Admin: 12/21/16 23:19 Dose: 30 mg Lisinopril (Zestril) 30 mg PO DAILY [facility] Last Admin: 12/22/16 10:44 Dose: Not Given - Labs Labs: 12/22/16 08:00 12/22/16 08:00 PT 10.1 Seconds (9.9-11.8) 12/19/16 22:10 INR 0.94 (0.93-1.08) 12/19/16 22:10 APTT 30.6 Seconds (23.7-30.8) 12/19/16 22:10 Attending/Attestation - Attestation I have personally seen and examined this patient.: Yes I have fully participated in the care of the patient.: Yes I have reviewed all pertinent clinical information, including history, physical exam and plan: Yes Notes (Text): 12/22/16 15:41 Patient was seen and examined with medical insurance verifier .Agreed with resident assessment and plan. 46 M with Submandibular abscess and streptococus Pyogene bacteremia, on IV unasyn,Vancomycin and fluconazole as per ID.Repeat blood cultures are negative.Patient WBC count is coming down, but he is complaining of worsening dysphagia. , case was discussed with ENT by medical insurance verifier and r epeat CT soft tissue of neck has been ordered , will folow up result.For now will start on clear liquid and will continue IV fluid.Patient is niot in any respiratory distress at this time. Patient also has right lower lung nodule , will need repeat chest in one year. Management plan was discussed in detail with patient Education was provided.
[2016-12-22] MEDS ORDERED: Iohexol 350 MG/100 ML VIAL ONE (13:14)
--- NOTE | 2016-12-22 14:04 | CT ---
CT chest with IV contrast Indication: Rule out cavitary lesions. Technique: Contiguous axial images were obtained through the chest with intravenous contrast enhancement. Sagittal and coronal reconstructions were generated and reviewed. This CT exam was performed using 1 or more of the falling dose reduction techniques: Automated exposure control, adjustment of the MAA and/or kV according to patient size, and/or use of iterative reconstruction technique. IV Contrast: 100 mL Omnipaque 350 Radiation dose (DLP): 310.18 MGy-cm. Comparison: None available Findings: Visualized portions of the inferior thyroid gland appear unremarkable. The mediastinal and hilar vascular structures appear within normal limits. The heart appears within normal limits of size. No large central pulmonary embolus identified. Minimal dependent atelectasis. No focal consolidation. No pleural effusion. No pneumothorax. 2 mm subpleural right lower lobe nodule (series 4, image 86, coronal image 19). No suspicious pulmonary nodules measuring greater than 5 mm. Limited visualization of the upper abdomen reveals hypoattenuation of the liver consistent with hepatic steatosis. No acute osseous abnormality is detected. Impression: 2 mm subpleural right lower lobe nodule. In the absence of risk factors for lung cancer, no specific imaging follow-up is required. If the patient is a smoker or has other risk factors, follow-up CT at 12 months is recommended to document stability. Hepatic steatosis.
--- NOTE | 2016-12-22 15:51 | CT ---
PROCEDURE: CT neck dated 12/22/2016 COMPARISON: Comparison made with CT scan neck 12/19/2016 TECHNIQUE: CT of the neck with intravenous contrast. Coronal and sagittal reformats generated. . Note that the examination is limited due to suboptimal contrast enhancement a (secondary delayed scanning following contrast injection) and a paucity of subcutaneous fat which diminishes inherent natural contrast material. Intravenous contrast dose: See CT scan report for contrast dose Radiation dose: DLP 352.51 mGy-cm This CT exam was performed using one or more of the following dose reduction techniques: Automated exposure control, adjustment of the mA and/or kV according to patient size, and/or use of iterative reconstruction technique. FINDINGS: The current study reveals what appears represent mild diffuse infiltration changes within the subcutaneous tissues of the inferior anterior and lateral margins of the mid to lower neck extending to least the level of the mandible and to a lesser degree lower cheek regions bilaterally. Findings likely represent a cellulitis . There is thickening of the platysma and what appears represent small amount of diffuse fluid in the at anterior left submandibular region. Additionally, there are several irregular somewhat serpiginous areas of low attenuation consistent with contiguous pockets of fluid within the submental soft tissues dissecting inferiorly through fat and fascia planes. The entire collection of small pockets of fluid span approximately 2 cm in CC dimension extending to the level /just below the just below the apex of the thyroid cartilage. . Small somewhat rectangular/elliptical shaped presumed fluid collection in the superior mid - right parasagittal superior submental region measures approximately 8.7 x 2.1 x 9.5 mm. . This is appears to be contiguous with slightly more inferiorly located bilobed pockets of fluid measuring approximately 2.3 cm on the left and 9 mm on the right. Greatest transverse dimension of fluid at a and just above the level of the apex of the thyroid cartilage is approximately 4.1 mm. . The entire area of abnormal presumed fluid is best seen from axial image number [id number]. Previously noted enlarged submental and submandibular lymph nodes are less well seen on this study compared to prior exam of likely due to suboptimal contrast enhancement as well as the aforementioned somewhat serpiginous fluid pockets mentioned above. These infiltration changes extend inferiorly into anterior and anterolateral subcutaneous tissues at to the level of the thoracic inlet. The airway is patent. Note that these findings were discussed with resident school occupational therapist Dr. Gagnon at approximately 3 p.m. with written down and read back verification. Case also discussed with Dr. Dawkins at approximately 3:28 p.m. with written down and read back verification. Pressure: Re- demonstrated are significant cellulitis changes (induration and infiltration changes) of the subcutaneous tissues above anterolateral soft tissues of the neck from the level of the mandible inferiorly into the thoracic inlet. There are irregular pockets of fluid are also present dissecting inferiorly along the submental soft tissues. . These fluid the pockets of do appear contiguous however no definitive enhancing rim seen to suggest a discrete abscess at this time though the fluid is presumably post infectious in origin. Multiple of some mildly enlarged submental and submandibular lymph nodes. . Airway is patent.
[2016-12-22] MEDS ORDERED: EnalaprilAT 1.25 mg/ml Inj IVP STA (16:04)
[2016-12-22] MEDS ORDERED: Dextrose 5%/0.45% NS 1,000 ML IV SCH (16:15)
[2016-12-22] MEDS ORDERED: Propofol 10 mg/ml Inj (20 ML) ONE ×2 (19:31→20:00)
[2016-12-22] MEDS ORDERED: Midazolam 2 MG/2 ML VIAL ONE (19:34)
[2016-12-22] MEDS ORDERED: Glycopyrrolate 0.2 mg/ml (2ml vial) ONE (19:38)
[2016-12-22] MEDS ORDERED: Liquid Adhesive TOP ONE (19:48)
[2016-12-22] MEDS ORDERED: Lidocaine 1%/Epinephrine 1:100000 30 ml vial ONE (19:49)
[2016-12-22] MEDS ORDERED: Lactated Ringer's 1,000 ML IV SCH (20:30)
[2016-12-22] MEDS ORDERED: HYDROmorphone 0.5 mg/0.5 ml ISec ONE ×2 (20:36→21:01)
[2016-12-22] MEDS: HYDROmorphone 0.5 mg/0.5 ml ISec IVP PRN ×2 (20:36→21:00)
[2016-12-22] MEDS ORDERED: Ampicillin/Sulbactam 3 gm Inj ONE ×2 (20:41→20:42)
--- NOTE | 2016-12-23 00:04 | OP ---
PROCEDURE DATE: 12/22/2016 PREOPERATIVE DIAGNOSIS: Deep neck space abscess submental. POSTOPERATIVE DIAGNOSIS: Deep neck space abscess submental. PROCEDURE: Incision and drainage of deep neck space abscess submental region. Direct laryngoscopy. SURGEON: Dr. Sivakumar Marte. DIRECTOR SALES AND TR[employer] MARKETING: Dr. Russell . ANESTHESIA: General endotracheal. COMPLICATIONS: None. CONDITION: The patient tolerated the procedure well and was sent to the postoperative care unit in stable condition. INDICATIONS: The patient was evaluated by the department of otolaryngology. The patient had subment al swelling. He was admitted to the hospital. He was put on IV antibiotics. Despite a decreasing w danyelle blood cell count trend, he had continued pressure and pain in the submental region with swelling . A repeat CAT scan was taken, which showed an area suspicious for abscess. At that point, the deci janet was made to take the patient to the operating room for incision and drainage. DESCRIPTION OF PROCEDURE: After informed consent was obtained from the patient, the patient clearly understood the risks versus benefits versus alternatives performing the procedure and was agree able to above. The patient was transported back to the operative suite. He was adequately anestheti zed by the Department of Anesthesia via general endotracheal tube intubation. Next, ENT assumed the case. Utilizing the GlideScope a direct laryngoscopy was performed. The patient did have a geograph ic tongue with erythema. The larynx was fully inspected. Vocal cords displayed no erythema, edema o r exudate. The supraglottic and glottic airways were normal. Hypopharynx normal. Next, after the p atient was prepped and draped in usual sterile fashion, a skin scribe was used to outline the subment al area. A 15 blade scalpel was used to make an incision through the epidermal and dermal tissues. A hemostat was then used to dissect into deep tissues and penetrate into the abscess pocket. Jorge p urulence was expelled. Cultures were taken for both aerobic, anaerobic, Gram stain, fungal and TB. The abscess cavity was fully expanded with blunt finger dissection. Jorge purulence was expressed. Bacitracin irrigation was used to irrigate out the wound. Iodoform packing was packed in the wound, approximately 2 feet. Silk sutures x 2 were used to reapproximate the skin. The patient was cleanse d and Mastisol gauze and Tegaderm were applied to the neck. The patient tolerated the procedure well . He was awoken from anesthesia and sent to the postoperative care unit in stable condition. Sivakumar Marte DO cc: [id number] TT: 12/23/2016 00:03:38 dn
[2016-12-23 01:24] LABS: HEMATOCRIT 42.9 % (42.0-52.0); MEAN CELL VOLUME 86.1 fL (80.0-105.0); MEAN CORPUSCULAR HEMOGLOBIN 30.9 pg (25.0-35.0); MEAN CORPUSCULAR HGB CONC 35.9 g/dl (31.0-37.0); MEAN PLATELET VOLUME 9.3 fl (7.0-11.0); RED CELL DISTRIBUTION WIDTH 13.3 % (11.5-14.5); WHITE BLOOD COUNT 18.5 10^3/ul (4.5-11.0)
[2016-12-23] MEDS: Dextrose 5%/0.45% NS 1,000 ML IV SCH ×2 (03:57→17:15)
[2016-12-23] MEDS: Ampicillin/Sulbactam 3 GM in Sodium Chloride 0.9% 100 ML IVPB SCH ×4 (04:59→23:07)
[2016-12-23 08:01] LABS: ADD MANUAL DIFF? NO
[2016-12-23 08:24] LABS: BASO # 0.01 K/mm3 (0.0-2.0); BASO % 0.1 % (0.0-3.0); EOS % 0.2 % (1.5-5.0); GRAN # 11.92 (1.4-6.5); GRAN % 80.6 % (50.0-68.0); HEMATOCRIT 42.6 % (42.0-52.0); LYMPH # 1.3 (1.2-3.4); LYMPH % 8.7 % (22.0-35.0); MEAN CELL VOLUME 85.9 fL (80.0-105.0); MEAN CORPUSCULAR HEMOGLOBIN 30.6 pg (25.0-35.0); MEAN CORPUSCULAR HGB CONC 35.7 g/dl (31.0-37.0); MONO # 1.5 (0.1-0.6); MONO % 10.4 % (1.0-6.0); PLATELET COUNT 279 10^3/uL (120.0-450.0); RED CELL DISTRIBUTION WIDTH 13.2 % (11.5-14.5); WHITE BLOOD COUNT 14.8 10^3/ul (4.5-11.0)
[2016-12-23 08:32] LABS: ALB/GLOB RATIO 1.2 (1.1-1.8); ALKALINE PHOSPHATASE 89 U/L (38-133); ALT/SGPT 38 U/L (7-56); AST/SGOT 27 U/L (15-59); BILIRUBIN,TOTAL 0.6 mg/dL (0.2-1.3); BLOOD UREA NITROGEN 6 mg/dL (7-21); CARBON DIOXIDE 21 mmol/L (21-33); CHLORIDE 105 mmol/L (98-107); GFR AFRICAN-AMERICAN > 60; GLUCOSE,RANDOM 89 mg/dL (70-110); SODIUM 138 mmol/L (132-148); TOTAL PROTEIN 7.2 g/dL (5.8-8.3)
[2016-12-23 08:52] LABS: POTASSIUM 2.8 mmol/L (3.6-5.0)
[2016-12-23] MEDS: Fluconazole IV 200mg/100 ml NS 100 MG in Premixed IV 1 EA IVPB SCH (09:35)
[2016-12-23] MEDS: Vancomycin 1gm in NS 250ml 1 GM/250 ML BAG IVPB SCH ×2 (09:36→21:21)
[2016-12-23] MEDS: Enoxaparin 40 mg Syringe SC SCH (09:41)
[2016-12-23] MEDS ORDERED: Potassium Chloride 20 mEq ER Tab PO SCH (10:30)
--- NOTE | 2016-12-23 12:10 | CP.PCM.PN ---
Subjective - Date & Time of Evaluation Date of Evaluation: 12/23/16 Time of Evaluation: 10:00 - Subjective Subjective: Patient was seen and examined with medical secretary receptionist . Patient underwent I/D of submental neck abscess yesterday.He is feeling better, dysphagia is improving.He is afebrile.He denies chest pain or palpitation or dyspnea Objective - Vital Signs/Intake and Output Vital Signs (last 24 hours): Temp Pulse Resp BP Pulse Ox 99 F 88 20 136/83 96 12/23/16 08:19 12/23/16 08:19 12/23/16 08:19 12/23/16 09:41 12/23/16 08:19 Intake and Output: 12/23/16 12/23/16 06:59 18:59 Intake Total 0 Output Total 1100 Balance -1100 - Medications Medications: Current Medications Acetaminophen (Tylenol 325mg Tab) 650 mg PO Q6H PRN PRN Reason: Fever >100.4 F Last Admin: 12/23/16 11:08 Dose: 650 mg Amlodipine Besylate (Norvasc) 10 mg PO DAILY [facility] Last Admin: 12/23/16 09:41 Dose: 10 mg Enoxaparin Sodium (Lovenox) 40 mg SC DAILY [facility] PRN Reason: Protocol Last Admin: 12/23/16 09:41 Dose: Not Given Famotidine (Pepcid) 20 mg PO BID [facility] Last Admin: 12/23/16 09:41 Dose: 20 mg Hydralazine HCl (Apresoline) 10 mg IVP Q6H PRN PRN Reason: High Blood Pressure Last Admin: 12/23/16 05:11 Dose: 10 mg Ampicillin Sodium/Sulbactam (Sodium 3 gm/ Sodium Chloride) 100 mls @ 200 mls/ hr IVPB Q6 [facility] PRN Reason: Protocol Last Admin: 12/23/16 11:04 Dose: 200 mls/hr Fluconazole 100 mg/ (Miscellaneous) 50 mls @ 100 mls/hr IVPB DAILY [facility] PRN Reason: Protocol Last Admin: 12/23/16 09:35 Dose: 100 mls/hr Vancomycin HCl (Vancomycin 1gm) 1 gm in 250 mls @ 167 mls/hr IVPB Q12H [facility] PRN Reason: Protocol Last Admin: 12/23/16 09:36 Dose: 167 mls/hr Dextrose/Sodium Chloride (Dextrose 5%/0.45% Ns 1000 Ml) 1,000 mls @ 75 mls/hr IV .[id number] [facility] Last Admin: 12/23/16 03:57 Dose: 75 mls/hr Potassium Chloride (Potassium Chloride 20 Meq/100 Ml) 20 meq in 100 mls @ 50 mls/hr IVPB Q2H [facility] Stop: 12/23/16 12:14 Last Admin: 12/23/16 11:03 Dose: 50 mls/hr Ketorolac Tromethamine (Toradol) 30 mg IVP Q6 PRN PRN Reason: Pain, moderate (4-7) Last Admin: 12/23/16 05:02 Dose: 30 mg Lisinopril (Zestril) 40 mg PO DAILY [facility] Last Admin: 12/23/16 09:40 Dose: 40 mg Phenazopyridine HCl (Pyridium) 200 mg PO DAILY [facility] Last Admin: 12/23/16 09:40 Dose: 200 mg Potassium Chloride (K-Dur 20 Meq Er Tab) 20 meq PO Q1 [facility] Stop: 12/25/16 10:31 - Labs Labs: 12/23/16 07:00 12/23/16 07:00 PT 10.1 Seconds (9.9-11.8) 12/19/16 22:10 INR 0.94 (0.93-1.08) 12/19/16 22:10 APTT 30.6 Seconds (23.7-30.8) 12/19/16 22:10 - Constitutional Appears: Non-toxic, No Acute Distress - Head Exam Head Exam: NORMAL INSPECTION, NORMOCEPHALIC - Eye Exam Eye Exam: Normal appearance - Neck Exam Additional comments: Dressing on the chin area.Dressing area is not soaked - Respiratory Exam Respiratory Exam: Clear to Ausculation Bilateral Additional comments: no ronchi or crackle - Cardiovascular Exam Cardiovascular Exam: REGULAR RHYTHM Additional comments: no rub or gallop - GI/Abdominal Exam GI & Abdominal Exam: Soft Additional comments: no tenderness, no guardening - Extremities Exam Additional comments: no edema, no cynosis or clubbing - Neurological Exam Neurological Exam: Alert, Awake, Oriented x3 Additional comments: non focal Assessment and Plan - Assessment and Plan (Free Text) Plan: 46 Yrs old male with sepsis due to submental deep neck abscess, Streptococu Pyogene Bateremia, .Patient underwent I/D of abscess yesterday and is improving.Patient also has Hypokalemia 1.Sepsis due to Submental deep neck abscess causing Streptococus Pyogene Bacteremia Patient is SP I/D of abscess yesterday and is feeling better, repeat blood cultures are negative. We will follow up wound cultures. We will continue IV unasyn, ID follow up is appreciated. Patient dysphagia is improving 2.Hypokalemia Replacement has been given, etiology is due to decrease oral intake and HCTS HCTZ is discontinued we will folow up LABS 3.HTN Blood pressure is better controlled, we will continue Lisinopril/Amlodipine and PRN hYDRALAZINE We will monitor and adjust medications 4.DVT Prophylaxis with lovenox Management plan was discussed in detail with patient Education was provided.
[2016-12-23 13:39] LABS: HEMATOCRIT 43.6 % (42.0-52.0); MEAN CELL VOLUME 85.7 fL (80.0-105.0); MEAN CORPUSCULAR HEMOGLOBIN 30.8 pg (25.0-35.0); MEAN PLATELET VOLUME 9.4 fl (7.0-11.0); RED CELL DISTRIBUTION WIDTH 13.1 % (11.5-14.5); WHITE BLOOD COUNT 14.2 10^3/ul (4.5-11.0)
--- NOTE | 2016-12-23 13:58 | CP.PCM.PN ---
Subjective - Date & Time of Evaluation Date of Evaluation: 12/23/16 Time of Evaluation: 12:50 - Subjective Subjective: Patient had surgery yesterday on the neck abscess. Patient is feeling better today, no fevers overnight, less pain in the neck. Objective - Vital Signs/Intake and Output Vital Signs (last 24 hours): Temp Pulse Resp BP Pulse Ox 98.4 F 61 20 182/96 H 98 12/21/16 16:00 12/22/16 05:24 12/21/16 16:00 12/22/16 05:24 12/21/16 16:00 Intake and Output: 12/22/16 12/22/16 06:59 18:59 Intake Total 540 Balance 540 - Medications Medications: Current Medications Acetaminophen (Tylenol 325mg Tab) 650 mg PO Q6H PRN PRN Reason: Fever >100.4 F Last Admin: 12/20/16 10:59 Dose: 650 mg Amlodipine Besylate (Norvasc) 10 mg PO DAILY [facility] Enoxaparin Sodium (Lovenox) 40 mg SC DAILY [facility] PRN Reason: Protocol Last Admin: 12/21/16 10:12 Dose: 40 mg Famotidine (Pepcid) 20 mg PO BID [facility] Last Admin: 12/21/16 17:45 Dose: 20 mg Hydralazine HCl (Apresoline) 10 mg IVP Q6H PRN PRN Reason: High Blood Pressure Last Admin: 12/22/16 05:24 Dose: 10 mg Hydrochlorothiazide (Hydrodiuril) 25 mg PO DAILY [facility] Last Admin: 12/21/16 10:12 Dose: 25 mg Ampicillin Sodium/Sulbactam (Sodium 3 gm/ Sodium Chloride) 100 mls @ 200 mls/ hr IVPB Q6 [facility] PRN Reason: Protocol Last Admin: 12/22/16 05:21 Dose: 200 mls/hr Fluconazole 100 mg/ (Miscellaneous) 50 mls @ 100 mls/hr IVPB DAILY [facility] PRN Reason: Protocol Vancomycin HCl (Vancomycin 1gm) 1 gm in 250 mls @ 167 mls/hr IVPB Q12H [facility] PRN Reason: Protocol Sodium Chloride (Sodium Chloride 0.45%) 1,000 mls @ 60 mls/hr IV .[id number] [facility] Ibuprofen (Motrin Tab) 600 mg PO Q6H PRN PRN Reason: Pain, Mild (1-3) Ketorolac Tromethamine (Toradol) 30 mg IVP Q6 PRN PRN Reason: Pain, moderate (4-7) Last Admin: 12/21/16 23:19 Dose: 30 mg Lisinopril (Zestril) 30 mg PO DAILY [facility] Last Admin: 12/21/16 10:11 Dose: 30 mg - Labs Labs: 12/22/16 08:00 12/22/16 08:00 PT 10.1 Seconds (9.9-11.8) 12/19/16 22:10 INR 0.94 (0.93-1.08) 12/19/16 22:10 APTT 30.6 Seconds (23.7-30.8) 12/19/16 22:10 - Constitutional Appears: Non-toxic, No Acute Distress - Head Exam Head Exam: NORMAL INSPECTION - Neck Exam Neck Exam: absent: Meningismus Additional comments: dressings in place over the anterior neck area - Respiratory Exam Respiratory Exam: Decreased Breath Sounds - Cardiovascular Exam Cardiovascular Exam: +S1, +S2 - GI/Abdominal Exam GI & Abdominal Exam: Soft. absent: Tenderness Assessment and Plan - Assessment and Plan (Free Text) Plan: Assessment Sepsis due to submandibular/submental cellulitis with abscess S/P surgical drainage POD #1, with associated group A strep bacteremia Oral thrush probably candidiasis HTN Plan continue Unasyn and Fluconazole pending cultures from the OR; reviewed CT chest and repeat CT neck HIV test and RPR are negative will continue to monitor clinically
[2016-12-23 21:39] LABS: BLOOD UREA NITROGEN 13 mg/dL (7-21); CALCIUM 9.4 mg/dL (8.4-10.5); CARBON DIOXIDE 24 mmol/L (21-33); CHLORIDE 99 mmol/L (98-107); GFR AFRICAN-AMERICAN > 60; GLUCOSE,RANDOM 98 mg/dL (70-110); POTASSIUM 3.4 mmol/L (3.6-5.0); SODIUM 133 mmol/L (132-148)
[2016-12-24] MEDS: Dextrose 5%/0.45% NS 1,000 ML IV SCH (02:49)
[2016-12-24] MEDS: Ampicillin/Sulbactam 3 GM in Sodium Chloride 0.9% 100 ML IVPB SCH ×3 (05:56→19:25)
[2016-12-24 07:29] LABS: ADD MANUAL DIFF? NO
[2016-12-24 07:34] LABS: BASO # 0.02 K/mm3 (0.0-2.0); BASO % 0.2 % (0.0-3.0); EOS # 0.4 (0.0-0.7); EOS % 3.9 % (1.5-5.0); GRAN # 6.28 (1.4-6.5); LYMPH # 1.7 (1.2-3.4); LYMPH % 17.8 % (22.0-35.0); MEAN CELL VOLUME 85.5 fL (80.0-105.0); MEAN CORPUSCULAR HEMOGLOBIN 30.6 pg (25.0-35.0); MEAN CORPUSCULAR HGB CONC 35.8 g/dl (31.0-37.0); MEAN PLATELET VOLUME 9.3 fl (7.0-11.0); MONO # 1.3 (0.1-0.6); MONO % 13.1 % (1.0-6.0); PLATELET COUNT 267 10^3/uL (120.0-450.0); RED CELL DISTRIBUTION WIDTH 13.2 % (11.5-14.5); WHITE BLOOD COUNT 9.7 10^3/ul (4.5-11.0)
[2016-12-24 07:40] LABS: ALB/GLOB RATIO 1.2 (1.1-1.8); ALKALINE PHOSPHATASE 71 U/L (38-133); ALT/SGPT 35 U/L (7-56); AST/SGOT 21 U/L (15-59); BILIRUBIN,TOTAL 0.6 mg/dL (0.2-1.3); BLOOD UREA NITROGEN 8 mg/dL (7-21); CALCIUM 9.1 mg/dL (8.4-10.5); CARBON DIOXIDE 23 mmol/L (21-33); CHLORIDE 104 mmol/L (95-110); GFR AFRICAN-AMERICAN > 60; GLUCOSE,RANDOM 88 mg/dL (70-110); POTASSIUM 3.3 mmol/L (3.6-5.0); SODIUM 138 mmol/L (132-148)
--- NOTE | 2016-12-24 08:34 | CP.PCM.PN ---
<MiriamTiti - Last Filed: 12/24/16 08:31> Subjective - Date & Time of Evaluation Date of Evaluation: 12/24/16 Time of Evaluation: 08:31 - Subjective Subjective: Patient seen and examined. No acute events overnight. Patient notes pain is improved. He does report any difficulty swallowing or stridor. He is afebrile. Surgical wound is dressed, minor oozing note around bandage. Objective - Vital Signs/Intake and Output Vital Signs (last 24 hours): Temp Pulse Resp BP Pulse Ox 98.3 F 73 18 140/99 H 96 12/23/16 16:00 12/23/16 16:00 12/23/16 16:00 12/23/16 16:00 12/23/16 16:00 Intake and Output: 12/24/16 12/24/16 06:59 18:59 Intake Total 860 Balance 860 - Medications Medications: Current Medications Acetaminophen (Tylenol 325mg Tab) 650 mg PO Q6H PRN PRN Reason: Fever >100.4 F Last Admin: 12/24/16 05:55 Dose: 650 mg Amlodipine Besylate (Norvasc) 10 mg PO DAILY [facility] Last Admin: 12/23/16 09:41 Dose: 10 mg Enoxaparin Sodium (Lovenox) 40 mg SC DAILY [facility] PRN Reason: Protocol Last Admin: 12/23/16 09:41 Dose: Not Given Famotidine (Pepcid) 20 mg PO BID [facility] Last Admin: 12/23/16 17:12 Dose: 20 mg Hydralazine HCl (Apresoline) 10 mg IVP Q6H PRN PRN Reason: High Blood Pressure Last Admin: 12/23/16 05:11 Dose: 10 mg Ampicillin Sodium/Sulbactam (Sodium 3 gm/ Sodium Chloride) 100 mls @ 200 mls/ hr IVPB Q6 [facility] PRN Reason: Protocol Last Admin: 12/24/16 05:56 Dose: 200 mls/hr Fluconazole 100 mg/ (Miscellaneous) 50 mls @ 100 mls/hr IVPB DAILY [facility] PRN Reason: Protocol Last Admin: 12/23/16 09:35 Dose: 100 mls/hr Vancomycin HCl (Vancomycin 1gm) 1 gm in 250 mls @ 167 mls/hr IVPB Q12H [facility] PRN Reason: Protocol Last Admin: 12/23/16 21:21 Dose: 167 mls/hr Dextrose/Sodium Chloride (Dextrose 5%/0.45% Ns 1000 Ml) 1,000 mls @ 75 mls/hr IV .[id number] [facility] Last Admin: 12/24/16 02:49 Dose: 75 mls/hr Ketorolac Tromethamine (Toradol) 30 mg IVP Q6 PRN PRN Reason: Pain, moderate (4-7) Last Admin: 12/24/16 00:39 Dose: 30 mg Lisinopril (Zestril) 40 mg PO DAILY [facility] Last Admin: 12/23/16 09:40 Dose: 40 mg Phenazopyridine HCl (Pyridium) 200 mg PO DAILY [facility] Last Admin: 12/23/16 09:40 Dose: 200 mg - Labs Labs: 12/24/16 07:00 12/24/16 07:00 PT 10.1 Seconds (9.9-11.8) 12/19/16 22:10 INR 0.94 (0.93-1.08) 12/19/16 22:10 APTT 30.6 Seconds (23.7-30.8) 12/19/16 22:10 - Constitutional Appears: Non-toxic, No Acute Distress - Head Exam Head Exam: ATRAUMATIC, NORMOCEPHALIC - Eye Exam Eye Exam: EOMI, PERRL - ENT Exam ENT Exam: Mucous Membranes Dry - Neck Exam Neck Exam: Full ROM Additional comments: surgical site cleaned and dressed. some oozing noted. - Respiratory Exam Respiratory Exam: Clear to Ausculation Bilateral. absent: Rales, Rhonchi, Wheezes - Cardiovascular Exam Cardiovascular Exam: REGULAR RHYTHM, +S1, +S2 - GI/Abdominal Exam GI & Abdominal Exam: Soft, Normal Bowel Sounds. absent: Tenderness - Extremities Exam Extremities Exam: Full ROM. absent: Calf Tenderness, Pedal Edema - Neurological Exam Neurological Exam: Alert, Awake - Psychiatric Exam Psychiatric exam: Normal Affect, Normal Mood - Skin Skin Exam: Dry, Warm Assessment and Plan - Assessment and Plan (Free Text) Assessment: 46yo M with hx HTN presenting with infra-mandibular soft tissue infection. S/P incision and drainage POD2. cellulitis -continue with vancomycin and unasyn and fluxonazole - ENT following -ID following - attempt to advance diet today gram positive cocci bacteremia - repeat cultures - no growth - ID following - continue abx as above hx HTN - continue home medications - hydralazine 50mg TID added Prophylaxis Pepcid Heart Healthy Diet Lovenox f/u health maintenance labs Patient seen, evaluated and examined with attending. <Gautam Nino MD - Last Filed: 12/24/16 12:30> Objective - Vital Signs/Intake and Output Vital Signs (last 24 hours): Temp Pulse Resp BP Pulse Ox 98 F 80 20 152/117 H 98 12/24/16 08:30 12/24/16 09:35 12/24/16 08:30 12/24/16 09:36 12/24/16 08:30 Intake and Output: 12/24/16 12/24/16 06:59 18:59 Intake Total 860 Balance 860 - Medications Medications: Current Medications Acetaminophen (Tylenol 325mg Tab) 650 mg PO Q6H PRN PRN Reason: Fever >100.4 F Last Admin: 12/24/16 05:55 Dose: 650 mg Amlodipine Besylate (Norvasc) 10 mg PO DAILY [facility] Last Admin: 12/24/16 09:36 Dose: 10 mg Enoxaparin Sodium (Lovenox) 40 mg SC DAILY [facility] PRN Reason: Protocol Last Admin: 12/24/16 09:36 Dose: 40 mg Famotidine (Pepcid) 20 mg PO BID [facility] Last Admin: 12/24/16 09:36 Dose: 20 mg Hydralazine HCl (Apresoline) 10 mg IVP Q6H PRN PRN Reason: High Blood Pressure Last Admin: 12/23/16 05:11 Dose: 10 mg Hydralazine HCl (Apresoline) 50 mg PO TID [facility] Last Admin: 12/24/16 09:35 Dose: 50 mg Ampicillin Sodium/Sulbactam (Sodium 3 gm/ Sodium Chloride) 100 mls @ 200 mls/ hr IVPB Q6 [facility] PRN Reason: Protocol Last Admin: 12/24/16 05:56 Dose: 200 mls/hr Fluconazole 100 mg/ (Miscellaneous) 50 mls @ 100 mls/hr IVPB DAILY [facility] PRN Reason: Protocol Last Admin: 12/24/16 09:58 Dose: 100 mls/hr Dextrose/Sodium Chloride (Dextrose 5%/0.45% Ns 1000 Ml) 1,000 mls @ 75 mls/hr IV .[id number] [facility] Last Admin: 12/24/16 02:49 Dose: 75 mls/hr Ketorolac Tromethamine (Toradol) 30 mg IVP Q6 PRN PRN Reason: Pain, moderate (4-7) Last Admin: 12/24/16 00:39 Dose: 30 mg Lisinopril (Zestril) 40 mg PO DAILY [facility] Last Admin: 12/24/16 09:35 Dose: 40 mg Phenazopyridine HCl (Pyridium) 200 mg PO DAILY [facility] Last Admin: 12/24/16 09:35 Dose: 200 mg - Labs Labs: 12/24/16 07:00 12/24/16 07:00 PT 10.1 Seconds (9.9-11.8) 12/19/16 22:10 INR 0.94 (0.93-1.08) 12/19/16 22:10 APTT 30.6 Seconds (23.7-30.8) 12/19/16 22:10 Attending/Attestation - Attestation I have personally seen and examined this patient.: Yes I have fully participated in the care of the patient.: Yes I have reviewed all pertinent clinical information, including history, physical exam and plan: Yes Notes (Text): Patient was seen and examined with diagnostic medical sonographer . 46 Yrs old male with sepsis due to submental deep neck abscess, Streptococu Pyogene Bateremia, .Patient underwent I/D of abscess 2 days back and is improving.Repeat blood cultures are negative.Patient vancomycin has been discontinued, currently on Unasyn and Fluconazole. Management plan was discussed in detail with patient Education was provided.
[2016-12-24] MEDS: Enoxaparin 40 mg Syringe SC SCH (09:36)
[2016-12-24] MEDS: Fluconazole IV 200mg/100 ml NS 100 MG in Premixed IV 1 EA IVPB SCH (09:58)
--- NOTE | 2016-12-24 11:11 | PN ---
DATE: 12/23/2016 OTOLARYNGOLOGY PROGRESS NOTE SUBJECTIVE: The patient was seen and examined today and offers no complaints. Denies any increasing neck swelling, chest pain, shortness of breath, nausea, vomiting, diarrhea, fevers, or night sweats. The patient gets improvement when swallowing, is slowly transitioning into diet today. VITAL SIGNS: Reviewed. Vital signs on the were reviewed. The patient's blood pressure is note d to be 140/99. Otherwise, vital signs were stable. LABORATORY DATA: No cultures have returned back from labs. White count is currently at 14.2 down fr om 18.5 with pending micro. The patient continues on antibiotics at this time. PHYSICAL EXAMINATION: GENERAL: Alert and oriented x 3, in no acute distress. EYES: EOMI. PERRLA. M MOUTH: Moist mucous membranes, poor dentition. NECK: Packing in place, slight bloody discharge on the packing, however. No crepitus in the neck, n o purulent drainage, slightly tender where packing is in place. Packing remains with iodoform in the neck area. No crepitus. RESPIRATORY: Aerating well. No stridor. Nonlabored breathing. ASSESSMENT AND PLAN: The patient is a 46-year-old male status post incision and drainage of a neck a bscess, postop day #1. Continue medical management per primary team. Recommend medical management o f the patient's hypertension, as the patient has had elevated blood pressure throughout this admissio n. Recommend continuing antibiotics per primary team and deescalating per cultures and sensitivity. Followup OR cultures that were taken. Maintain packing through tomorrow. Plan for partial packing r emoval for 12/24. Sivakumar Marte DO cc: [id number] TT: 12/24/2016 11:10:54 Confirmation # [id number] Dictation # [id number] betzy
--- NOTE | 2016-12-24 11:55 | PN ---
DATE: 12/24/2016 PATIENT LOCATION: 573, bed 1. The patient was seen and examined. The patient offers no ENT complaints. Denies chest pain, shortne ss of breath; nausea, vomiting or diarrhea; fevers, night sweats, increased neck swelling. The patie nt states he is tolerating solid diet at this time. Feels that he has improved since the surgery. T he patient denies any sudden increased drainage from the neck. VITAL SIGNS: Reviewed. The patient is afebrile. The patient remains hypertensive. PHYSICAL EXAMINATION: GENERAL: Alert and oriented x 3, in no acute distress. HEENT: Eyes: EOMI. PERRLA. Mouth: Moist mucous membranes. Poor dentition. Symmetric elevation. NECK: Trachea midline. Induration of the neck. Patient's dressing removed. Half of the iodoform p acking removed from patient's neck with very slight drainage expressed. No crepitus felt. The patie nt with ____ mild tenderness to palpation. Half of the iodoform packing remains. The patient's neck with 2 sutures on the right of the incision. Packing to remain through tomorrow when rest of the re maining packing can be removed including incision sutures. RESPIRATORY: Aerating well. No stridor, nonlabored breathing. LABORATORY DATA: Down trending white count. Micro: Some micro back from surgery, still pending ___ _ do not see listed in the results category ____. Will follow up ____. ASSESSMENT AND PLAN: The patient is a 46-year-old male status post incision and drainage of a neck a bscess, postoperative day #2. Maintain iodoform packing until tomorrow and then this packing will co me out. The patient still has sutures in the neck at this time. Recommend having suture removal kit at bedside in patient's armoring machine operator addition to saline for irrigation. Recommend routine dressing changes per nursing daily. Recommend monitoring patient's CBC, vitals, and cultures. The patient currently on Unasyn antibiotics. Will continue antibiotic till culture ____ studies are confirmed. Sivakumar Marte DO cc: [id number] TT: 12/24/2016 11:55:24 Confirmation # [id number] Dictation # [id number] mn
--- NOTE | 2016-12-24 17:47 | CP.PCM.PN ---
Subjective - Date & Time of Evaluation Date of Evaluation: 12/24/16 Time of Evaluation: 11:00 - Subjective Subjective: Feels better, dressings on his neck were changed earlier this morning. No fevers overnight, swallowing better. Objective - Vital Signs/Intake and Output Vital Signs (last 24 hours): Temp Pulse Resp BP Pulse Ox 98.5 F 68 18 116/70 97 12/24/16 16:00 12/24/16 16:00 12/24/16 16:00 12/24/16 16:00 12/24/16 16:00 Intake and Output: 12/24/16 12/24/16 06:59 18:59 Intake Total 860 720 Output Total 275 Balance 860 445 - Medications Medications: Current Medications Acetaminophen (Tylenol 325mg Tab) 650 mg PO Q6H PRN PRN Reason: Fever >100.4 F Last Admin: 12/24/16 05:55 Dose: 650 mg Amlodipine Besylate (Norvasc) 10 mg PO DAILY [facility] Last Admin: 12/24/16 09:36 Dose: 10 mg Enoxaparin Sodium (Lovenox) 40 mg SC DAILY [facility] PRN Reason: Protocol Last Admin: 12/24/16 09:36 Dose: 40 mg Famotidine (Pepcid) 20 mg PO BID [facility] Last Admin: 12/24/16 09:36 Dose: 20 mg Hydralazine HCl (Apresoline) 10 mg IVP Q6H PRN PRN Reason: High Blood Pressure Last Admin: 12/23/16 05:11 Dose: 10 mg Hydralazine HCl (Apresoline) 50 mg PO TID [facility] Last Admin: 12/24/16 15:13 Dose: 50 mg Ampicillin Sodium/Sulbactam (Sodium 3 gm/ Sodium Chloride) 100 mls @ 200 mls/ hr IVPB Q6 [facility] PRN Reason: Protocol Last Admin: 12/24/16 12:49 Dose: 200 mls/hr Fluconazole 100 mg/ (Miscellaneous) 50 mls @ 100 mls/hr IVPB DAILY [facility] PRN Reason: Protocol Last Admin: 12/24/16 09:58 Dose: 100 mls/hr Dextrose/Sodium Chloride (Dextrose 5%/0.45% Ns 1000 Ml) 1,000 mls @ 75 mls/hr IV .[id number] [facility] Last Admin: 12/24/16 02:49 Dose: 75 mls/hr Ketorolac Tromethamine (Toradol) 30 mg IVP Q6 PRN PRN Reason: Pain, moderate (4-7) Last Admin: 12/24/16 00:39 Dose: 30 mg Lisinopril (Zestril) 40 mg PO DAILY [facility] Last Admin: 12/24/16 09:35 Dose: 40 mg Phenazopyridine HCl (Pyridium) 200 mg PO DAILY [facility] Last Admin: 12/24/16 09:35 Dose: 200 mg - Labs Labs: 12/24/16 07:00 12/24/16 07:00 PT 10.1 Seconds (9.9-11.8) 12/19/16 22:10 INR 0.94 (0.93-1.08) 12/19/16 22:10 APTT 30.6 Seconds (23.7-30.8) 12/19/16 22:10 - Constitutional Appears: Non-toxic, No Acute Distress - Head Exam Head Exam: NORMAL INSPECTION - ENT Exam ENT Exam: absent: Mucous Membranes Moist - Neck Exam Neck Exam: absent: Lymphadenopathy, Meningismus Additional comments: anterior neck with dry dressings in place - Respiratory Exam Respiratory Exam: Decreased Breath Sounds - Cardiovascular Exam Cardiovascular Exam: +S1, +S2 - GI/Abdominal Exam GI & Abdominal Exam: Soft. absent: Tenderness Assessment and Plan - Assessment and Plan (Free Text) Plan: Assessment Sepsis due to submandibular/submental cellulitis with abscess S/P surgical drainage POD #2, with associated group A strep bacteremia Oral thrush probably candidiasis HTN Plan continue Unasyn and Fluconazole pending cultures from the OR; reviewed CT chest and repeat CT neck HIV test and RPR are negative will continue to follow clinically
[2016-12-24] MEDS ORDERED: Potassium Chloride 20 mEq ER Tab PO STA (21:07)
[2016-12-25] MEDS: Ampicillin/Sulbactam 3 GM in Sodium Chloride 0.9% 100 ML IVPB SCH ×4 (00:28→18:52)
[2016-12-25] MEDS: Dextrose 5%/0.45% NS 1,000 ML IV SCH ×2 (06:20→10:19)
[2016-12-25] MEDS: Fluconazole IV 200mg/100 ml NS 100 MG in Premixed IV 1 EA IVPB SCH (10:19)
[2016-12-25] MEDS: Enoxaparin 40 mg Syringe SC SCH (10:20)
[2016-12-25 10:40] LABS: ADD MANUAL DIFF? NO
[2016-12-25 10:41] LABS: BASO # 0.04 K/mm3 (0.0-2.0); BASO % 0.4 % (0.0-3.0); EOS # 0.4 (0.0-0.7); EOS % 4.1 % (1.5-5.0); GRAN # 6.65 (1.4-6.5); GRAN % 67.2 % (50.0-68.0); LYMPH # 1.9 (1.2-3.4); LYMPH % 19.3 % (22.0-35.0); MEAN CELL VOLUME 86.7 fL (80.0-105.0); MEAN CORPUSCULAR HEMOGLOBIN 31.2 pg (25.0-35.0); MEAN PLATELET VOLUME 9.2 fl (7.0-11.0); MONO # 0.9 (0.1-0.6); PLATELET COUNT 319 10^3/uL (120.0-450.0); RED CELL DISTRIBUTION WIDTH 13.3 % (11.5-14.5); WHITE BLOOD COUNT 9.9 10^3/ul (4.5-11.0)
[2016-12-25 10:51] LABS: BLOOD UREA NITROGEN 11 mg/dL (7-21); CALCIUM 10.1 mg/dL (8.4-10.5); CARBON DIOXIDE 24 mmol/L (21-33); CHLORIDE 102 mmol/L (95-110); GFR AFRICAN-AMERICAN > 60; GLUCOSE,RANDOM 122 mg/dL (70-110); POTASSIUM 3.2 mmol/L (3.6-5.0); SODIUM 139 mmol/L (132-148)
--- NOTE | 2016-12-25 10:58 | PN ---
DATE: 12/25/2016 SUBJECTIVE: The patient seen and examined. The patient offers no ENT complaints, denies increased n suha swelling, neck pain, chest pain, shortness of breath, nausea, vomiting, diarrhea, fevers or night sweats. The patient states he is feeling much better and that he is eating well. Offers no neck co mplaints. PHYSICAL EXAMINATION: VITAL SIGNS: I reviewed vital signs, stable. GENERAL: Alert and oriented x 3, in no acute distress. Eyes PERRLA. Mouth: Moist mucous membranes , no swollen mouth, tongue is midline. Symmetric palatal elevation and poor dentition. NECK: Trachea is midline. Packing currently in place with 2 sutures. Gauze with some slight purule nt drainage. Remainder of packing removed from patient's neck and 2 sutures removed from patient's n suha. Neck wound irrigated with sterile saline for irrigation and expressed from the wound a total 5 t imes. The patient tolerated the suture removal and that procedure well. No crepitus in the neck. N o more purulent fluid expressed from the neck. No bleeding noted. No crepitus. Some slight indurat ion in the submental area; however, no discrete fluid collections. Patient with full range of neck m otion. Respiratory aerating well. No stridor. Nonlabored breathing. Voice is normal. LABORATORY DATA: No labs are present at this time. MEDICATIONS: Currently on Unasyn. MICROCULTURES: Cultures from surgical samples still pending at this time. ASSESSMENT AND PLAN: The patient is a 46-year-old male status post incision and drainage of a neck m ass. Postoperative day 3. PLAN: Progressing as expected. Continue dressing changes daily and keeping the wound site clean. M onitor for cultures. Continue antibiotics. Monitor vital signs and CBC. Monitor for clinical impro vement. Deescalate IV antibiotics per cultures per infectious disease recommendations. No ENT surgi brayden intervention is necessary at this time. Sivakumar Marte DO cc: [id number] TT: 12/25/2016 10:58:02 Confirmation # [id number] Dictation # [id number] betzy
--- NOTE | 2016-12-25 13:33 | CP.PCM.PN ---
<Titi Pineda - Last Filed: 12/25/16 13:30> Subjective - Date & Time of Evaluation Date of Evaluation: 12/25/16 Time of Evaluation: 13:30 - Subjective Subjective: Patient seen and evaluated this morning. He is tolerating diet well. Reports night sweats overnight however he remains afebrile. Stitches were removed by ENT , dressings changed daily by nursing. Objective - Vital Signs/Intake and Output Vital Signs (last 24 hours): Temp Pulse Resp BP Pulse Ox 98 F 68 20 144/97 H 99 12/25/16 07:30 12/25/16 10:21 12/25/16 07:30 12/25/16 10:21 12/25/16 07:30 Intake and Output: 12/25/16 12/25/16 06:59 18:59 Intake Total 960 640 Output Total 700 Balance 260 640 - Medications Medications: Current Medications Acetaminophen (Tylenol 325mg Tab) 650 mg PO Q6H PRN PRN Reason: Fever >100.4 F Last Admin: 12/24/16 05:55 Dose: 650 mg Amlodipine Besylate (Norvasc) 10 mg PO DAILY [facility] Last Admin: 12/25/16 10:21 Dose: 10 mg Enoxaparin Sodium (Lovenox) 40 mg SC DAILY [facility] PRN Reason: Protocol Last Admin: 12/25/16 10:20 Dose: 40 mg Famotidine (Pepcid) 20 mg PO BID [facility] Last Admin: 12/25/16 10:20 Dose: 20 mg Hydralazine HCl (Apresoline) 10 mg IVP Q6H PRN PRN Reason: High Blood Pressure Last Admin: 12/23/16 05:11 Dose: 10 mg Hydralazine HCl (Apresoline) 50 mg PO TID [facility] Last Admin: 12/25/16 10:21 Dose: 50 mg Ampicillin Sodium/Sulbactam (Sodium 3 gm/ Sodium Chloride) 100 mls @ 200 mls/ hr IVPB Q6 [facility] PRN Reason: Protocol Last Admin: 12/25/16 12:54 Dose: 200 mls/hr Fluconazole 100 mg/ (Miscellaneous) 50 mls @ 100 mls/hr IVPB DAILY [facility] PRN Reason: Protocol Last Admin: 12/25/16 10:19 Dose: 100 mls/hr Dextrose/Sodium Chloride (Dextrose 5%/0.45% Ns 1000 Ml) 1,000 mls @ 75 mls/hr IV .[id number] [facility] Last Admin: 12/25/16 10:19 Dose: 75 mls/hr Ketorolac Tromethamine (Toradol) 30 mg IVP Q6 PRN PRN Reason: Pain, moderate (4-7) Last Admin: 12/24/16 22:02 Dose: 30 mg Lisinopril (Zestril) 40 mg PO DAILY [facility] Last Admin: 12/25/16 10:21 Dose: 40 mg Phenazopyridine HCl (Pyridium) 200 mg PO DAILY [facility] Last Admin: 12/25/16 10:20 Dose: 200 mg - Labs Labs: 12/25/16 10:30 12/25/16 10:30 PT 10.1 Seconds (9.9-11.8) 12/19/16 22:10 INR 0.94 (0.93-1.08) 12/19/16 22:10 APTT 30.6 Seconds (23.7-30.8) 12/19/16 22:10 - Constitutional Appears: Non-toxic, No Acute Distress - Head Exam Head Exam: ATRAUMATIC, NORMOCEPHALIC - Eye Exam Eye Exam: EOMI, PERRL - ENT Exam Additional comments: submandibular surgical site c/d/i. surrounding tenderness and mild swelling noted. - Neck Exam Neck Exam: Full ROM. absent: Lymphadenopathy - Respiratory Exam Respiratory Exam: Clear to Ausculation Bilateral. absent: Rales, Rhonchi, Wheezes - Cardiovascular Exam Cardiovascular Exam: REGULAR RHYTHM, +S1, +S2 - GI/Abdominal Exam GI & Abdominal Exam: Soft, Normal Bowel Sounds. absent: Tenderness - Extremities Exam Extremities Exam: Full ROM. absent: Pedal Edema - Neurological Exam Neurological Exam: Alert, Awake, Oriented x3 - Psychiatric Exam Psychiatric exam: Normal Affect, Normal Mood - Skin Skin Exam: Dry, Warm Assessment and Plan - Assessment and Plan (Free Text) Assessment: 46yo M with hx HTN presenting with infra-mandibular soft tissue infection. S/P incision and drainage POD3. Sutures were removed today by ENT. Dressing changes daily by nursing staff. Awaiting surgical wound cultures to determine ultimate abx course. cellulitis - continue with and unasyn and fluconazole - waiting on wound cultures - ENT following - ID following - tolerating diet. gram positive cocci bacteremia - repeat cultures - no growth - ID following - continue abx as above hx HTN - continue with Norvasc and Hydralazine - patient will need new rx on discharge Prophylaxis Pepcid Heart Healthy Diet Lovenox f/u health maintenance labs Patient seen, evaluated and examined with attending. <Mica CEDEÑO,Gautam - Last Filed: 12/25/16 16:54> Objective - Vital Signs/Intake and Output Vital Signs (last 24 hours): Temp Pulse Resp BP Pulse Ox 98 F 80 20 177/119 H 99 12/25/16 07:30 12/25/16 13:57 12/25/16 07:30 12/25/16 13:57 12/25/16 07:30 Intake and Output: 12/25/16 12/25/16 06:59 18:59 Intake Total 960 640 Output Total 700 Balance 260 640 - Medications Medications: Current Medications Acetaminophen (Tylenol 325mg Tab) 650 mg PO Q6H PRN PRN Reason: Fever >100.4 F Last Admin: 12/24/16 05:55 Dose: 650 mg Amlodipine Besylate (Norvasc) 10 mg PO DAILY [facility] Last Admin: 12/25/16 10:21 Dose: 10 mg Enoxaparin Sodium (Lovenox) 40 mg SC DAILY [facility] PRN Reason: Protocol Last Admin: 12/25/16 10:20 Dose: 40 mg Famotidine (Pepcid) 20 mg PO BID [facility] Last Admin: 12/25/16 10:20 Dose: 20 mg Hydralazine HCl (Apresoline) 10 mg IVP Q6H PRN PRN Reason: High Blood Pressure Last Admin: 12/23/16 05:11 Dose: 10 mg Hydralazine HCl (Apresoline) 50 mg PO TID [facility] Last Admin: 12/25/16 13:57 Dose: 50 mg Ampicillin Sodium/Sulbactam (Sodium 3 gm/ Sodium Chloride) 100 mls @ 200 mls/ hr IVPB Q6 [facility] PRN Reason: Protocol Last Admin: 12/25/16 12:54 Dose: 200 mls/hr Fluconazole 100 mg/ (Miscellaneous) 50 mls @ 100 mls/hr IVPB DAILY [facility] PRN Reason: Protocol Last Admin: 12/25/16 10:19 Dose: 100 mls/hr Dextrose/Sodium Chloride (Dextrose 5%/0.45% Ns 1000 Ml) 1,000 mls @ 75 mls/hr IV .[id number] [facility] Last Admin: 12/25/16 10:19 Dose: 75 mls/hr Ketorolac Tromethamine (Toradol) 30 mg IVP Q6 PRN PRN Reason: Pain, moderate (4-7) Last Admin: 12/24/16 22:02 Dose: 30 mg Lisinopril (Zestril) 40 mg PO DAILY [facility] Last Admin: 12/25/16 10:21 Dose: 40 mg Phenazopyridine HCl (Pyridium) 200 mg PO DAILY [facility] Last Admin: 12/25/16 10:20 Dose: 200 mg - Labs Labs: 12/25/16 10:30 12/25/16 10:30 PT 10.1 Seconds (9.9-11.8) 12/19/16 22:10 INR 0.94 (0.93-1.08) 12/19/16 22:10 APTT 30.6 Seconds (23.7-30.8) 12/19/16 22:10 Attending/Attestation - Attestation I have personally seen and examined this patient.: Yes I have fully participated in the care of the patient.: Yes I have reviewed all pertinent clinical information, including history, physical exam and plan: Yes Notes (Text): 12/25/16 16:53 Patient was seen and examined with medical review coordinator .Agreed with resident assessment and plan. 46 Yrs old male with PMH of HTN was admitted with with sepsis due to submental deep neck abscess resulting , Streptococu Pyogene Bateremia, .Patient underwent I/D of abscess 3 days back and is improving.Repeat blood cultures are negative. Patient vancomycinis on Unasyn and Fluconazole.Wound cultures are pending, can be switched to oral once culture are back and go home.ID on case Management plan was discussed in detail with patient Education was provided.
--- NOTE | 2016-12-25 19:57 | CP.PCM.PN ---
Subjective - Date & Time of Evaluation Date of Evaluation: 12/25/16 Time of Evaluation: 11:30 - Subjective Subjective: Comfortable, no fevers overnight, less pain in the neck area. Objective - Vital Signs/Intake and Output Vital Signs (last 24 hours): Temp Pulse Resp BP Pulse Ox 98.2 F 81 20 152/100 H 98 12/25/16 16:00 12/25/16 18:04 12/25/16 16:00 12/25/16 18:04 12/25/16 16:00 Intake and Output: 12/25/16 12/26/16 18:59 06:59 Intake Total 640 Balance 640 - Medications Medications: Current Medications Acetaminophen (Tylenol 325mg Tab) 650 mg PO Q6H PRN PRN Reason: Fever >100.4 F Last Admin: 12/24/16 05:55 Dose: 650 mg Amlodipine Besylate (Norvasc) 10 mg PO DAILY [facility] Last Admin: 12/25/16 10:21 Dose: 10 mg Enoxaparin Sodium (Lovenox) 40 mg SC DAILY [facility] PRN Reason: Protocol Last Admin: 12/25/16 10:20 Dose: 40 mg Famotidine (Pepcid) 20 mg PO BID [facility] Last Admin: 12/25/16 18:04 Dose: 20 mg Hydralazine HCl (Apresoline) 10 mg IVP Q6H PRN PRN Reason: High Blood Pressure Last Admin: 12/23/16 05:11 Dose: 10 mg Hydralazine HCl (Apresoline) 50 mg PO TID [facility] Last Admin: 12/25/16 18:04 Dose: 50 mg Ampicillin Sodium/Sulbactam (Sodium 3 gm/ Sodium Chloride) 100 mls @ 200 mls/ hr IVPB Q6 [facility] PRN Reason: Protocol Last Admin: 12/25/16 18:52 Dose: 200 mls/hr Fluconazole 100 mg/ (Miscellaneous) 50 mls @ 100 mls/hr IVPB DAILY [facility] PRN Reason: Protocol Last Admin: 12/25/16 10:19 Dose: 100 mls/hr Dextrose/Sodium Chloride (Dextrose 5%/0.45% Ns 1000 Ml) 1,000 mls @ 75 mls/hr IV .[id number] [facility] Last Admin: 12/25/16 10:19 Dose: 75 mls/hr Ketorolac Tromethamine (Toradol) 30 mg IVP Q6 PRN PRN Reason: Pain, moderate (4-7) Last Admin: 12/24/16 22:02 Dose: 30 mg Lisinopril (Zestril) 40 mg PO DAILY [facility] Last Admin: 12/25/16 10:21 Dose: 40 mg Phenazopyridine HCl (Pyridium) 200 mg PO DAILY [facility] Last Admin: 12/25/16 10:20 Dose: 200 mg - Labs Labs: 12/25/16 10:30 12/25/16 10:30 PT 10.1 Seconds (9.9-11.8) 12/19/16 22:10 INR 0.94 (0.93-1.08) 12/19/16 22:10 APTT 30.6 Seconds (23.7-30.8) 12/19/16 22:10 - Constitutional Appears: Non-toxic, No Acute Distress - Head Exam Head Exam: NORMAL INSPECTION - Neck Exam Neck Exam: absent: Meningismus Additional comments: dressings in place on the submental area - Respiratory Exam Respiratory Exam: Decreased Breath Sounds - Cardiovascular Exam Cardiovascular Exam: +S1, +S2 - GI/Abdominal Exam GI & Abdominal Exam: Soft. absent: Tenderness Assessment and Plan - Assessment and Plan (Free Text) Plan: Assessment Sepsis due to submandibular/submental cellulitis with abscess S/P surgical drainage POD #3, with associated group A strep bacteremia Oral thrush probably candidiasis HTN Plan continue Unasyn and Fluconazole pending final cultures from the OR; reviewed CT chest and repeat CT neck HIV test and RPR are negative will continue to follow clinically
[2016-12-25] MEDS ORDERED: Potassium Chloride 20 mEq ER Tab PO STA (20:19)
[2016-12-26] MEDS: Ampicillin/Sulbactam 3 GM in Sodium Chloride 0.9% 100 ML IVPB SCH ×3 (00:08→12:02)
[2016-12-26 08:02] LABS: ADD MANUAL DIFF? NO
[2016-12-26 08:07] LABS: BASO # 0.03 K/mm3 (0.0-2.0); BASO % 0.4 % (0.0-3.0); EOS # 0.4 (0.0-0.7); EOS % 4.7 % (1.5-5.0); GRAN # 5.58 (1.4-6.5); GRAN % 66.5 % (50.0-68.0); HEMATOCRIT 41.9 % (42.0-52.0); LYMPH # 1.6 (1.2-3.4); LYMPH % 19.1 % (22.0-35.0); MEAN CELL VOLUME 86.7 fL (80.0-105.0); MEAN CORPUSCULAR HEMOGLOBIN 31.1 pg (25.0-35.0); MEAN CORPUSCULAR HGB CONC 35.8 g/dl (31.0-37.0); MEAN PLATELET VOLUME 8.8 fl (7.0-11.0); MONO # 0.8 (0.1-0.6); MONO % 9.3 % (1.0-6.0); PLATELET COUNT 321 10^3/uL (120.0-450.0); RED CELL DISTRIBUTION WIDTH 13.2 % (11.5-14.5); WHITE BLOOD COUNT 8.4 10^3/ul (4.5-11.0)
[2016-12-26 08:38] LABS: BLOOD UREA NITROGEN 11 mg/dL (7-21); CALCIUM 9.4 mg/dL (8.4-10.5); CARBON DIOXIDE 23 mmol/L (21-33); CHLORIDE 104 mmol/L (95-110); GFR AFRICAN-AMERICAN > 60; GLUCOSE,RANDOM 93 mg/dL (70-110); POTASSIUM 3.6 mmol/L (3.6-5.0); SODIUM 137 mmol/L (132-148)
[2016-12-26] MEDS: Fluconazole IV 200mg/100 ml NS 100 MG in Premixed IV 1 EA IVPB SCH (11:05)
[2016-12-26 16:29] VITALS: BP 133/90; PULSE 71; RESP 20; TEMP 98.2; O2SAT 97
--- NOTE | 2016-12-26 16:34 | CP.PCM.DIS ---
Provider - Provider Date of Admission: 12/20/16 02:01 Attending physician: Christoph Oliveira MD Time Spent in preparation of Discharge (in minutes): 35 Hospital Course - Lab Results Lab Results: Micro Results 12/22/16 19:57 Other: Please Indicate Gram Stain - Final 12/22/16 19:57 Other: Please Indicate Anaerobic Culture - Final NO ANAEROBES ISOLATED. 12/22/16 19:57 Other: Please Indicate Fungal Culture - Preliminary 12/22/16 19:57 Other: Please Indicate Wound Culture - Preliminary Gram Positive Cocci 12/21/16 06:30 Blood-Venous Blood Culture - Final NO GROWTH AFTER 5 DAYS 12/21/16 06:30 Blood-Venous Gram Stain - Final TEST NOT PERFORMED 12/21/16 06:20 Blood-Venous Blood Culture - Final NO GROWTH AFTER 5 DAYS 12/21/16 06:20 Blood-Venous Gram Stain - Final TEST NOT PERFORMED Most Recent Lab Values WBC 8.4 10^3/ul (4.5-11.0) 12/26/16 07:45 RBC 4.83 10^6/uL (3.5-6.1) 12/26/16 07:45 Hgb 15.0 gm/dL (14.0-18.0) 12/26/16 07:45 Hct 41.9 % (42.0-52.0) L 12/26/16 07:45 MCV 86.7 fL (80.0-105.0) 12/26/16 07:45 MCH 31.1 pg (25.0-35.0) 12/26/16 07:45 MCHC 35.8 g/dl (31.0-37.0) 12/26/16 07:45 RDW 13.2 % (11.5-14.5) 12/26/16 07:45 Plt Count 321 10^3/uL (120.0-450.0) 12/26/16 07:45 MPV 8.8 fl (7.0-11.0) 12/26/16 07:45 Gran % 66.5 % (50.0-68.0) 12/26/16 07:45 Lymph % (Auto) 19.1 % (22.0-35.0) L 12/26/16 07:45 Gates % (Auto) 9.3 % (1.0-6.0) H 12/26/16 07:45 Eos % (Auto) 4.7 % (1.5-5.0) 12/26/16 07:45 Baso % (Auto) 0.4 % (0.0-3.0) 12/26/16 07:45 Gran # 5.58 (1.4-6.5) 12/26/16 07:45 Lymph # 1.6 (1.2-3.4) 12/26/16 07:45 Gates # 0.8 (0.1-0.6) H 12/26/16 07:45 Eos # 0.4 (0.0-0.7) 12/26/16 07:45 Baso # 0.03 K/mm3 (0.0-2.0) 12/26/16 07:45 Neutrophils % (Manual) 84 % (50.0-70.0) H 12/19/16 22:10 Band Neutrophils % 3 % (0-2) H 12/19/16 22:10 Lymphocytes % (Manual) 8 % (22.0-35.0) L 12/19/16 22:10 Monocytes % (Manual) 4 % (1.0-6.0) 12/19/16 22:10 Eosinophils % (Manual) 1 % (0.0-3.0) 12/19/16 22:10 Platelet Evaluation Normal (NORMAL) 12/19/16 22:10 PT 10.1 Seconds (9.9-11.8) 12/19/16 22:10 INR 0.94 (0.93-1.08) 12/19/16 22:10 APTT 30.6 Seconds (23.7-30.8) 12/19/16 22:10 pO2 68 mm/Hg (30-55) H 12/20/16 02:04 VBG pH 7.42 (7.32-7.43) 12/20/16 02:04 VBG pCO2 35.0 (40-60) L 12/20/16 02:04 VBG HCO3 22.7 mmol/l (21-28) 12/20/16 02:04 VBG Total CO2 23.8 mmol.L (22-28) 12/20/16 02:04 VBG O2 Sat (Calc) 97.3 % (40-65) H 12/20/16 02:04 VBG Base Excess -1.3 mmol/L (0.0-2.0) L 12/20/16 02:04 VBG Potassium 3.3 mmol/L (3.6-5.2) L 12/20/16 02:04 Sodium 136.0 mmol/L (132-148) 12/20/16 02:04 Chloride 107.0 mmol/L (98-107) 12/20/16 02:04 Glucose 157 mg/dl (75-110) H 12/20/16 02:04 Lactate 1.4 mmol/L (0.7-2.1) 12/20/16 02:04 FiO2 21.0 % 12/20/16 02:04 Sodium 137 mmol/L (132-148) 12/26/16 07:45 Potassium 3.6 mmol/L (3.6-5.0) 12/26/16 07:45 Chloride 104 mmol/L (95-110) 12/26/16 07:45 Carbon Dioxide 23 mmol/L (21-33) 12/26/16 07:45 Anion Gap 14 (10-20) 12/26/16 07:45 BUN 11 mg/dL (7-21) 12/26/16 07:45 Creatinine 0.9 mg/dL (0.5-1.4) 12/26/16 07:45 Est GFR ( Amer) > 60 12/26/16 07:45 Est GFR (Non-Af Amer) > 60 12/26/16 07:45 Random Glucose 93 mg/dL (70-110) 12/26/16 07:45 Hemoglobin A1c 5.3 % (4.2-6.5) 12/20/16 07:30 Calcium 9.4 mg/dL (8.4-10.5) 12/26/16 07:45 Phosphorus 3.0 mg/dL (2.5-4.5) 12/19/16 22:10 Magnesium 2.3 mg/dL (1.7-2.2) H 12/19/16 22:10 Total Bilirubin 0.6 mg/dL (0.2-1.3) 12/24/16 07:00 AST 21 U/L (15-59) 12/24/16 07:00 ALT 35 U/L (7-56) 12/24/16 07:00 Alkaline Phosphatase 71 U/L (38-133) 12/24/16 07:00 Troponin I < 0.01 ng/mL 12/19/16 22:10 Total Protein 7.0 g/dL (5.8-8.3) 12/24/16 07:00 Albumin 3.8 g/dL (3.0-4.8) 12/24/16 07:00 Globulin 3.2 gm/dL 12/24/16 07:00 Albumin/Globulin Ratio 1.2 (1.1-1.8) 12/24/16 07:00 Triglycerides 70 mg/dL (35-160) 12/20/16 07:30 Cholesterol 161 mg/dL (130-200) 12/20/16 07:30 LDL Cholesterol Direct 92 mg/dL (0-129) 12/20/16 07:30 HDL Cholesterol 66 mg/dL (29-60) H 12/20/16 07:30 Free T4 1.17 ng/dL (0.78-2.19) 12/20/16 07:30 TSH 3rd Generation 0.43 mIU/mL (0.46-4.68) L 12/20/16 07:30 Venous Blood Potassium 3.3 mmol/L (3.6-5.2) L 12/20/16 02:04 Urine Color Yellow (YELLOW) 12/19/16 22:10 Urine Appearance Clear (CLEAR) 12/19/16 22:10 Urine pH 6.5 (4.7-8.0) 12/19/16 22:10 Ur Specific Rowan 1.020 (1.005-1.035) 12/19/16 22:10 Urine Protein Trace mg/dL (<30 mg/dL) H 12/19/16 22:10 Urine Glucose (UA) Negative mg/dL (NEGATIVE) 12/19/16 22:10 Urine Ketones Negative mg/dL (NEGATIVE) 12/19/16 22:10 Urine Blood Negative (NEGATIVE) 12/19/16 22:10 Urine Nitrate Negative (NEGATIVE) 12/19/16 22:10 Urine Bilirubin Negative (NEGATIVE) 12/19/16 22:10 Urine Urobilinogen 0.2 E.U./dL (<1 E.U./dL) 12/19/16 22:10 Ur Leukocyte Esterase Negative Vero/uL (NEGATIVE) 12/19/16 22:10 Urine RBC 0 - 2 /hpf (0-2) 12/19/16 22:10 Urine WBC 0 - 2 /hpf (0-6) 12/19/16 22:10 Ur Epithelial Cells 1 - 3 /hpf (0-5) 12/19/16 22:10 Urine Bacteria Large (NEG) 12/19/16 22:10 Urine Opiates Screen Negative (NEGATIVE) 12/20/16 03:00 Urine Methadone Screen Negative (NEGATIVE) 12/20/16 03:00 Ur Barbiturates Screen Negative (NEGATIVE) 12/20/16 03:00 Ur Phencyclidine Scrn Negative (NEGATIVE) 12/20/16 03:00 Ur Amphetamines Screen Negative (NEGATIVE) 12/20/16 03:00 U Benzodiazepines Scrn Negative (NEGATIVE) 12/20/16 03:00 U Oth Cocaine Metabols Negative (NEGATIVE) 12/20/16 03:00 U Cannabinoids Screen Positive (NEGATIVE) H 12/20/16 03:00 RPR Nonreactive (NONREACTIVE) 12/21/16 09:00 Hepatitis A IgM Ab Negative (NEGATIVE) 12/20/16 07:30 Hep Bs Antigen Negative (NEGATIVE) 12/20/16 07:30 Hep B Core IgM Ab Negative (NEGATIVE) 12/20/16 07:30 Hepatitis C Antibody Negative (NEGATIVE) 12/20/16 07:30 HIV 1&2 Ag/Ab, 4th Gen Nonreactive (Nonreactive) 12/21/16 09:00 - Hospital Course Hospital Course: Patient is a 46-year-old male with a past medical history of hypertension, noncompliance with medication is admitted with left neck soft tissue infection. S/P incision and drainage. Sutures were removed by ENT. Dressing changes daily by nursing staff. Treated with IV unasyn and fluconazole. Repeat cultures growing gram-positive cocci. Previous cultures Showed strep. ID evaluation with Dr. moncada appreciated. We will discharge home with po levofloxacin 2.hypertension;continue with Norvasc,lisinopril and Hydralazine. started on heart healthy diet. Pain management with tramadol. prescription delivered from [facility] pharmacy. patient will be discharged today. Follow-up with [facility] clinic. Patient is Advised to complete [employer] Paperwork. diagnosis; left neck/submental abscess status post incision and drainage Strep infection Hypertension Discharge Exam - Head Exam Head Exam: NORMAL INSPECTION Discharge Plan - Discharge Medications Prescriptions: hydrALAZINE [Apresoline] 50 mg PO TID #90 tab Moxifloxacin [Avelox] 400 mg PO DAILY #7 tab amLODIPine [Norvasc] 10 mg PO DAILY #30 tab traMADol [Ultram] 50 mg PO TID #10 tab Lisinopril [Zestril] 40 mg PO DAILY #30 tab - Follow Up Plan Condition: STABLE Disposition: HOME/ ROUTINE Instructions: Cellulitis (DC), Chronic Hypertension (GEN), Abscess (GEN) Additional Instructions: 1. Follow up with [facility] clinic. Call for appointment. 2. Continue dressing for neck area. 3. Complete antibiotics. 4. heart healthy low salt diet.
--- NOTE | 2016-12-26 17:45 | CP.PCM.PN ---
Subjective - Date & Time of Evaluation Date of Evaluation: 12/26/16 Time of Evaluation: 11:30 - Subjective Subjective: Comfortable, not in distress, afebrile, swallowing better. Objective - Vital Signs/Intake and Output Vital Signs (last 24 hours): Temp Pulse Resp BP Pulse Ox 98.4 F 60 18 140/99 H 98 12/26/16 07:30 12/26/16 07:30 12/26/16 07:30 12/26/16 07:30 12/26/16 07:30 Intake and Output: 12/26/16 12/26/16 06:59 18:59 Intake Total 980 Balance 980 - Medications Medications: Current Medications Acetaminophen (Tylenol 325mg Tab) 650 mg PO Q6H PRN PRN Reason: Fever >100.4 F Last Admin: 12/24/16 05:55 Dose: 650 mg Amlodipine Besylate (Norvasc) 10 mg PO DAILY [facility] Last Admin: 12/25/16 10:21 Dose: 10 mg Famotidine (Pepcid) 20 mg PO BID [facility] Last Admin: 12/25/16 18:04 Dose: 20 mg Hydralazine HCl (Apresoline) 10 mg IVP Q6H PRN PRN Reason: High Blood Pressure Last Admin: 12/23/16 05:11 Dose: 10 mg Hydralazine HCl (Apresoline) 50 mg PO TID [facility] Last Admin: 12/25/16 18:04 Dose: 50 mg Ampicillin Sodium/Sulbactam (Sodium 3 gm/ Sodium Chloride) 100 mls @ 200 mls/ hr IVPB Q6 [facility] PRN Reason: Protocol Last Admin: 12/26/16 05:13 Dose: 200 mls/hr Fluconazole 100 mg/ (Miscellaneous) 50 mls @ 100 mls/hr IVPB DAILY [facility] PRN Reason: Protocol Last Admin: 12/25/16 10:19 Dose: 100 mls/hr Dextrose/Sodium Chloride (Dextrose 5%/0.45% Ns 1000 Ml) 1,000 mls @ 75 mls/hr IV .[id number] [facility] Last Admin: 12/25/16 10:19 Dose: 75 mls/hr Ketorolac Tromethamine (Toradol) 30 mg IVP Q6 PRN PRN Reason: Pain, moderate (4-7) Last Admin: 12/24/16 22:02 Dose: 30 mg Lisinopril (Zestril) 40 mg PO DAILY [facility] Last Admin: 12/25/16 10:21 Dose: 40 mg Phenazopyridine HCl (Pyridium) 200 mg PO DAILY [facility] Last Admin: 12/25/16 10:20 Dose: 200 mg - Labs Labs: 12/26/16 07:45 12/26/16 07:45 PT 10.1 Seconds (9.9-11.8) 12/19/16 22:10 INR 0.94 (0.93-1.08) 12/19/16 22:10 APTT 30.6 Seconds (23.7-30.8) 12/19/16 22:10 - Constitutional Appears: Non-toxic, No Acute Distress - Head Exam Head Exam: NORMAL INSPECTION - Neck Exam Neck Exam: absent: Lymphadenopathy, Meningismus - Respiratory Exam Respiratory Exam: Decreased Breath Sounds - Cardiovascular Exam Cardiovascular Exam: +S1, +S2 - GI/Abdominal Exam GI & Abdominal Exam: Soft. absent: Tenderness Assessment and Plan - Assessment and Plan (Free Text) Plan: Assessment Sepsis due to submandibular/submental cellulitis with abscess S/P surgical drainage POD #4, with associated group A strep bacteremia Oral thrush probably candidiasis HTN Plan on Unasyn and Fluconazole; cultures from the OR are negative; reviewed CT chest and repeat CT neck - can be switched to PO Levaquin to complete therapy HIV test and RPR are negative
[2016-12-27] MEDS ORDERED: Ampicillin/Sulbactam 3 GM in Sodium Chloride 0.9% 100 ML IVPB SCH
== END 2016-12-26 18:27 | disposition home or self-care (01) | DRG 872 ==
LOC: ED 20:41 → ERH 12-20 02:01 → 5RSO 12-20 03:25
PROVIDERS: ADMIT Internal Medicine; ATTEND Internal Medicine
PROC: 0CJS8ZZ Inspection of Larynx, Via Natural or Artificial Opening Endoscopic (ICD-10-PCS; 2016-12-22)
PROC: 0J940ZX Drainage of Right Neck Subcutaneous Tissue and Fascia, Open Approach, Diagnostic (ICD-10-PCS; principal; 2016-12-22 19:30)
DX: A40.0 Sepsis due to streptococcus, group A (principal); L02.11 Cutaneous abscess of neck; B37.0 Candidal stomatitis; L03.221 Cellulitis of neck; I16.1 Hypertensive emergency; M27.2 Inflammatory conditions of jaws; F12.90 Cannabis use, unspecified, uncomplicated; F17.210 Nicotine dependence, cigarettes, uncomplicated; E87.6 Hypokalemia; Z91.14 Patient's other noncompliance with medication regimen